=== PATIENT | female | born 1945 | race Caucasian/White ===

== ENCOUNTER → 2016-12-13 | Outpatient (CLI) | payer MEDICARE, OTHER ==
--- NOTE | 2016-12-13 15:56 | NM ---
EXAMINATION TYPE: NM DatScan Brain SPECT DATE OF EXAM: 12/13/2016 3:18 PM COMPARISON: NONE HISTORY: Parkinson's disease TECHNIQUE: 10 drops of Lugol's solution was administered 1 hour prior to injection as a thyroid bloc uzma agent. After the administration of 4.34 mCi I-123 Ioflupane DaTscan. Images obtained 3 hours p ost injection. SPECT images of the brain were acquired with axial and coronal reconstructions. FINDINGS: Normal symmetric comma shaped uptake noted along the striatal tissue within the brain. IMPRESSION: Normal Taryn scan
== END ==
LOC: RADNMMAIN 10:03
PROVIDERS: ATTEND Psychiatry & Neurology Neurology
DX: G20 Parkinson's disease (principal)
CPT/HCPCS: 78607; A9584

== ENCOUNTER → 2016-12-15 | Outpatient (CLI) | payer MEDICARE, OTHER ==
--- NOTE | 2016-12-16 16:11 | MR ---
EXAMINATION TYPE: MR angio head wo con DATE OF EXAM: 12/15/2016 2:28 PM COMPARISON: [facility] HISTORY: cerebral aneurysm, f/u TECHNIQUE: Time of flight images focusing on the [place] were performed without contrast. 3- D [id number] images are filmed. Source images are reviewed. FINDINGS: Right vertebral artery is not identified. Basilar artery is normal. The internal carotid ar teries bifurcates normally into A1 and M1 segments. The A2 segments are normal. The posterior cerebra l vasculature is normal. Posterior communicating on the right is patent. The left posterior communica ting artery is absent. Left middle cerebral artery branches are normal. At the trifurcation of the right distal M1 segment is a 0.4 cm aneurysm. This is evident on source im ages rotating images. COMPARISON: Previous measurement is 2.84 mm. Current measurement is 3.8 mm these may be within measur ement error. 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
== END | disposition home or self-care (01) ==
LOC: RADMRIMAIN 14:03
PROVIDERS: ATTEND Psychiatry & Neurology Neurology
DX: I67.1 Cerebral aneurysm, nonruptured (principal)
CPT/HCPCS: 70544

== ENCOUNTER 2017-05-27 09:56 | Emergency (ER) | payer MEDICARE, OTHER ==
[2017-05-27] MEDS ORDERED: ASPIRIN 81 MG CHEW PO STA (10:33)
[2017-05-27] MEDS ORDERED: SODIUM CHLORIDE 0.9% 500 ML IV STA (10:33)
--- NOTE | 2017-05-27 11:01 | ED ---
General Adult HPI - General Chief complaint: Chest Pain Stated complaint: Chest Pain Time Seen by Provider: 05/27/17 10:20 Source: patient, family, RN notes reviewed Mode of arrival: wheelchair Limitations: no limitations - History of Present Illness Initial comments: 71-year-old female presents to the emergency department with a chief complaint of chest pain. Patient states today she started having this chest pressure she points to the center of her chest. Patient states that she went to her doctor and she was sent here. Patient states that she has had a cough with this she states that there is some phlegm production. Patient states taking deep breath seems to make the pain worse as well as makes her cough. Patient denies any nausea vomiting with this. Patient does admit to some lower lip swelling that has happened for the past few days ever since her lisinopril dose was increased. Patient states there is no difficulty in breathing with this or any shortness of breath. Patient denies any nausea any diaphoresis. Patient denies any other symptoms at this time. There is no radiation of the pain. Patient denies any recent fever, chills, shortness of breath, back pain, abdominal pain, nausea vomiting, numbness or tingling, dysuria or hematuria, constipation or diarrhea, headaches or visual changes, or any other current symptoms. - Related Data Home Medications Medication Instructions Recorded Confirmed Atorvastatin [Lipitor] 10 mg PO DAILY 05/27/17 05/27/17 FLUoxetine HCL [PROzac] 20 mg PO DAILY 05/27/17 05/27/17 Hydrocodone/Acetaminophen [[place] 1 tab PO TID PRN 05/27/17 05/27/17 10-325] Levothyroxine Sodium [Synthroid] 125 mcg PO DAILY 05/27/17 05/27/17 Lisinopril-Hctz 10-12.5 mg 1 tab PO DAILY 05/27/17 05/27/17 [Zestoretic 10-12.5] Omeprazole [PriLOSEC] 20 mg PO DAILY 05/27/17 05/27/17 Allergies Allergy/AdvReac Type Severity Reaction Status Date / Time pravastatin [From Pravachol] Allergy Swelling Verified 05/27/17 10:51 Review of Systems ROS Statement: Those systems with pertinent positive or pertinent negative responses have been documented in the HPI. ROS Other: All systems not noted in ROS Statement are negative. Past Medical History Past Medical History: GERD/Reflux, Hyperlipidemia, Hypertension, Thyroid Disorder Additional Past Medical History / Comment(s): back pain History of Any Multi-Drug Resistant Organisms: None Reported Past Surgical History: Appendectomy, Hernia Repair Additional Past Surgical History / Comment(s): bilateral carpal tunnerl, trigger finger left hand, tumor removal Past Psychological History: Depression Smoking Status: Current every day smoker Past Alcohol Use History: Occasional Past Drug Use History: None Reported General Exam - General Exam Comments Initial Comments: General: The patient is awake and alert, in no distress, and does not appear acutely ill. Eye: Pupils are equal, round and reactive to light, extra-ocular movements are intact; there is normal conjunctiva bilaterally. No signs of icterus. Ears, nose, mouth and throat: There are moist mucous membranes and no oral lesions. Neck: The neck is supple, there is no tenderness. Cardiovascular: There is a regular rate and rhythm. No murmur, rub or gallop is appreciated. Respiratory: Lungs are clear to auscultation, respirations are non-labored, breath sounds are equal. No wheezes, stridor, rales, or rhonchi. Gastrointestinal: Soft, non-distended, non-tender abdomen without masses or organomegaly noted. There is no rebound or guarding present. No CVA tenderness. Bowel sounds are unremarkable. Back: There is no tenderness to palpation in the midline. There is no obvious deformity. No rashes noted. Musculoskeletal: Normal ROM, no tenderness, There is no pedal edema. There is no calf tenderness or swelling. Sensation intact. Pulses equal bilaterally 2+. Neurological: CN II-XII intact, There are no obvious motor or sensory deficits. Coordination appears grossly intact. Speech is normal. Skin: Skin is warm and dry and no rashes or lesions are noted. Psychiatric: Cooperative, appropriate mood & affect, normal judgment. Limitations: no limitations Course Vital Signs 05/27/17 05/27/17 05/27/17 09:57 10:28 11:15 Temperature 97.2 F L Pulse Rate 77 63 Respiratory 18 18 18 Rate Blood Pressure 167/68 143/64 O2 Sat by Pulse 98 99 Oximetry 05/27/17 12:16 Temperature Pulse Rate 60 Respiratory 18 Rate Blood Pressure 157/67 O2 Sat by Pulse 96 Oximetry EKG Findings - EKG Comments: EKG Findings:: normal sinus rhythm with sinus arrhythmia 66 bpm, normal axis, no atopy, no S-T depressions or elevations, Medical Decision Making - Medical Decision Making 71-year-old female presents to the emergency department with a chief complaint of chest pressure. At this time patient's pain is 1 out of 10 on reevaluation. Patient's lab work and imaging has been reviewed. Her chest pain with the risks factors will admit patient for cardiac rule out. This was discussed with the patient and she is negative plan. All questions have been answered. Patient will be admitted. - Lab Data Result diagrams: 05/27/17 10:24 05/27/17 10:24 Lab Results 05/27/17 05/27/17 05/27/17 Range/Units 10:24 10:24 10:24 WBC 6.3 (3.8-10.6) k/uL RBC 4.48 (3.80-5.40) m/uL Hgb 14.3 (11.4-16.0) gm/dL Hct 42.4 (34.0-46.0) % MCV 94.5 (80.0-100.0) fL MCH 31.8 (25.0-35.0) pg MCHC 33.7 (31.0-37.0) g/dL RDW 13.8 (11.5-15.5) % Plt Count 256 (150-450) k/uL Neutrophils % 63 % Lymphocytes % 25 % Monocytes % 5 % Eosinophils % 4 % Basophils % 1 % Neutrophils # 4.0 (1.3-7.7) k/uL Lymphocytes # 1.6 (1.0-4.8) k/uL Monocytes # 0.3 (0-1.0) k/uL Eosinophils # 0.2 (0-0.7) k/uL Basophils # 0.1 (0-0.2) k/uL PT (9.0-12.0) sec INR (<1.2) APTT (22.0-30.0) sec D-Dimer (<0.60) mg/L FEU Sodium 137 (137-145) mmol/L Potassium 4.2 (3.5-5.1) mmol/L Chloride 102 (98-107) mmol/L Carbon Dioxide 28 (22-30) mmol/L Anion Gap 7 mmol/L BUN 13 (7-17) mg/dL Creatinine 0.70 (0.52-1.04) mg/dL Est GFR (MDRD) Af Amer >60 (>60 ml/min/1.73 sqM) Est GFR (MDRD) Non-Af >60 (>60 ml/min/1.73 sqM) Glucose 98 (74-99) mg/dL Calcium 8.9 (8.4-10.2) mg/dL Magnesium 1.5 L (1.6-2.3) mg/dL Total Bilirubin 0.6 (0.2-1.3) mg/dL AST 17 (14-36) U/L ALT 24 (9-52) U/L Alkaline Phosphatase 78 (38-126) U/L Total Creatine Kinase 36 (30-135) U/L CK-MB (CK-2) 0.9 (0.0-2.4) ng/mL CK-MB (CK-2) Rel Index 2.5 Troponin I <0.012 (0.000-0.034) ng/mL NT-Pro-B Natriuret Pep pg/mL Total Protein 6.6 (6.3-8.2) g/dL Albumin 3.9 (3.5-5.0) g/dL Amylase 67 (30-110) U/L Lipase 63 (23-300) U/L 05/27/17 05/27/17 Range/Units 10:24 10:24 WBC (3.8-10.6) k/uL RBC (3.80-5.40) m/uL Hgb (11.4-16.0) gm/dL Hct (34.0-46.0) % MCV (80.0-100.0) fL MCH (25.0-35.0) pg MCHC (31.0-37.0) g/dL RDW (11.5-15.5) % Plt Count (150-450) k/uL Neutrophils % % Lymphocytes % % Monocytes % % Eosinophils % % Basophils % % Neutrophils # (1.3-7.7) k/uL Lymphocytes # (1.0-4.8) k/uL Monocytes # (0-1.0) k/uL Eosinophils # (0-0.7) k/uL Basophils # (0-0.2) k/uL PT 9.9 (9.0-12.0) sec INR 1.0 (<1.2) APTT 25.8 (22.0-30.0) sec D-Dimer 0.75 H (<0.60) mg/L FEU Sodium (137-145) mmol/L Potassium (3.5-5.1) mmol/L Chloride (98-107) mmol/L Carbon Dioxide (22-30) mmol/L Anion Gap mmol/L BUN (7-17) mg/dL Creatinine (0.52-1.04) mg/dL Est GFR (MDRD) Af Amer (>60 ml/min/1.73 sqM) Est GFR (MDRD) Non-Af (>60 ml/min/1.73 sqM) Glucose (74-99) mg/dL Calcium (8.4-10.2) mg/dL Magnesium (1.6-2.3) mg/dL Total Bilirubin (0.2-1.3) mg/dL AST (14-36) U/L ALT (9-52) U/L Alkaline Phosphatase (38-126) U/L Total Creatine Kinase (30-135) U/L CK-MB (CK-2) (0.0-2.4) ng/mL CK-MB (CK-2) Rel Index Troponin I (0.000-0.034) ng/mL NT-Pro-B Natriuret Pep 183 pg/mL Total Protein (6.3-8.2) g/dL Albumin (3.5-5.0) g/dL Amylase (30-110) U/L Lipase (23-300) U/L - Radiology Data Radiology results: report reviewed, image reviewed Disposition Clinical Impression: Unstable angina, Cough Disposition: ADMITTED IP TO THIS [facility] Condition: Stable Referrals: Alisha Munoz MD [Primary Care Provider] - 1-2 days Time of Disposition: 13:12 Decision Date: 05/27/17 Decision Time: 13:12
[2017-05-27 11:17] LABS: Basophils # (A) 0.1 k/uL (0-0.2); Basophils % (A) 1 %; CH 32.7; CHCM 34.8; Eosinophils # (A) 0.2 k/uL (0-0.7); Eosinophils % (A) 4 %; HCT 42.4 % (34.0-46.0); HDW 2.21; HGB 14.3 gm/dL (11.4-16.0); Luc # (Auto) 0.12; Luc % (Auto) 2; Lymphocytes # (A) 1.6 k/uL (1.0-4.8); Lymphocytes % (A) 25 %; MCH 31.8 pg (25.0-35.0); MCHC 33.7 g/dL (31.0-37.0); MCV 94.5 fL (80.0-100.0); Mean Platelet Volume 7.7; Monocytes # (A) 0.3 k/uL (0-1.0); Monocytes % (A) 5 %; Neutrophils % (A) 63 %; RBC 4.48 m/uL (3.80-5.40); RDW 13.8 % (11.5-15.5); WBC 6.3 k/uL (3.8-10.6); WBC (Perox) 6.31
[2017-05-27 11:31] LABS: ALT 24 U/L (9-52); AST 17 U/L (14-36); Alkaline Phosphatase 78 U/L (38-126); Amylase 67 U/L (30-110); Anion Gap 7 mmol/L; Blood Urea Nitrogen 13 mg/dL (7-17); Calcium 8.9 mg/dL (8.4-10.2); Carbon Dioxide 28 mmol/L (22-30); Chloride 102 mmol/L (98-107); Glucose 98 mg/dL (74-99); Magnesium 1.5 mg/dL (1.6-2.3); Non-African American GFR(MDRD) >60 (>60 ml/min/1.73 sqM); Potassium 4.2 mmol/L (3.5-5.1); Sodium 137 mmol/L (137-145); Total Bilirubin 0.6 mg/dL (0.2-1.3); Total Protein 6.6 g/dL (6.3-8.2)
[2017-05-27 11:33] LABS: Partial Thromboplastin Time 25.8 sec (22.0-30.0); Prothrombin Time 9.9 sec (9.0-12.0)
--- NOTE | 2017-05-27 11:35 | XR ---
EXAMINATION TYPE: XR chest 2V DATE OF EXAM: 05/27/2017 COMPARISON: NONE HISTORY: Chest pain, hypertension TECHNIQUE: Frontal and lateral views of the chest are obtained. FINDINGS: There is no focal air space opacity, pleural effusion, or pneumothorax seen. The cardiac silhouette size is within normal limits. Interstitium is prominent, there is biapical pleural thicke samuel. Prominent lung volume could be indicative of underlying COPD. There are overlying cardiac leads . Patient is rotated. The osseous structures are intact. IMPRESSION: Suspect underlying interstitial lung disease.
[2017-05-27 11:37] LABS: Creatine Kinase 36 U/L (30-135)
[2017-05-27] MEDS ORDERED: RX INFO: IV CONTRAST WAS GIVEN 1 EACH MISC MISCELLANE PRN (11:43)
[2017-05-27 11:50] LABS: Creatine Kinase MB 0.9 ng/mL (0.0-2.4); Troponin I <0.012 ng/mL (0.000-0.034)
--- NOTE | 2017-05-27 12:47 | CT ---
EXAMINATION TYPE: CT angio chest DATE OF EXAM: 05/27/2017 COMPARISON: NONE HISTORY: Chest pain, difficulty breathing CT DLP: 242.7 mGycm. Automated Exposure Control for Dose Reduction was Utilized. CONTRAST: CTA scan of the thorax is performed with IV Contrast, patient injected with 100 mL of Omnipaque 350, pulmonary embolism protocol. MIP Images are created on CT scanner and reviewed. FINDINGS: LUNGS: Biapical nodular pleural parenchymal scarring is noted. Moderate centrilobular and paraseptal emphysematous changes are seen with scattered blebs. Stacking of lung cysts compatible with honeycomb ing is seen a peripheral basilar distribution predominating in the lower lobes compatible with pulmon addy fibrosis. Within the posterior basilar segment of the left lower lobe there is a spiculated 9 x 9 mm pulmonary nodule abutting the pleural surface. Focal pleural thickening is seen just inferior and lateral to th is as well as scattered groundglass opacities that may relate to the underlying fibrosis or bibasilar atelectasis. No focal consolidation is seen. No pleural effusion or pneumothorax. There is no pleura l effusion or pneumothorax seen. The tracheobronchial tree is patent. MEDIASTINUM: Moderate two-vessel coronary artery calcifications are seen within the left anterior anju cending and circumflex arteries. There is satisfactory enhancement of the pulmonary artery and its br anches, there is no CT evidence for pulmonary embolism. Mediastinal and hilar adenopathy are present with the largest conglomeration in the right hilum measuring 2.4 x 1.3 cm, the largest subcarinal lym ph node measuring 8.8 mm in short axis, and a noted within the aorticopulmonary window measuring 11 m m in short axis. No axillary adenopathy is appreciated. No cardiomegaly or pericardial effusion is seen. OTHER: No additional significant abnormality is seen. Mild degenerative changes of the thoracic spin e are noted. IMPRESSION: 1. No evidence of pulmonary embolism. 2. 9 mm spiculated nodule within the posterior basilar segment of the left lower lobe. This is superi mposed upon a background of moderate centrilobular and paraseptal emphysematous changes as well as fi ndings compatible with pulmonary fibrosis. Therefore, this patient may be high risk if undergoing per cutaneous biopsy and PET CT or short-term follow-up in 3 months is recommended.
[2017-05-27] MEDS ORDERED: HEPARIN SODIUM,PORCINE 5,000 UNIT/ML 1 ML VIAL IV ONE (13:12)
[2017-05-27] MEDS ORDERED: NITROGLYCERIN SL TABS 0.4 MG TAB SUBLINGUAL PRN (13:12)
[2017-05-27] MEDS ORDERED: HYDROcodone/APAP 10-325MG 1 EACH TAB PO PRN (13:14)
[2017-05-27] MEDS ORDERED: SODIUM CHLORIDE 0.9% 1,000 ML IV SCH (13:15)
[2017-05-27] MEDS ORDERED: HEPARIN SODIUM,PORCINE/D5W PMX 25,000 UNIT in DEXTROSE/WATER 1 500ML.BAG IV SCH (13:15)
--- NOTE | 2017-05-27 13:18 | ED ---
Medical Decision Making - Medical Decision Making After the orders for any place for admission the patient states that she would like to leave AMA. She was discussed the risk of this. We did discuss that could lead to she could've a heart attack along with many other causes. Patient stated she understood but she will be signing out. - Lab Data Result diagrams: 05/27/17 10:24 05/27/17 10:24 Lab Results 05/27/17 05/27/17 05/27/17 Range/Units 10:24 10:24 10:24 WBC 6.3 (3.8-10.6) k/uL RBC 4.48 (3.80-5.40) m/uL Hgb 14.3 (11.4-16.0) gm/dL Hct 42.4 (34.0-46.0) % MCV 94.5 (80.0-100.0) fL MCH 31.8 (25.0-35.0) pg MCHC 33.7 (31.0-37.0) g/dL RDW 13.8 (11.5-15.5) % Plt Count 256 (150-450) k/uL Neutrophils % 63 % Lymphocytes % 25 % Monocytes % 5 % Eosinophils % 4 % Basophils % 1 % Neutrophils # 4.0 (1.3-7.7) k/uL Lymphocytes # 1.6 (1.0-4.8) k/uL Monocytes # 0.3 (0-1.0) k/uL Eosinophils # 0.2 (0-0.7) k/uL Basophils # 0.1 (0-0.2) k/uL PT (9.0-12.0) sec INR (<1.2) APTT (22.0-30.0) sec D-Dimer (<0.60) mg/L FEU Sodium 137 (137-145) mmol/L Potassium 4.2 (3.5-5.1) mmol/L Chloride 102 (98-107) mmol/L Carbon Dioxide 28 (22-30) mmol/L Anion Gap 7 mmol/L BUN 13 (7-17) mg/dL Creatinine 0.70 (0.52-1.04) mg/dL Est GFR (MDRD) Af Amer >60 (>60 ml/min/1.73 sqM) Est GFR (MDRD) Non-Af >60 (>60 ml/min/1.73 sqM) Glucose 98 (74-99) mg/dL Calcium 8.9 (8.4-10.2) mg/dL Magnesium 1.5 L (1.6-2.3) mg/dL Total Bilirubin 0.6 (0.2-1.3) mg/dL AST 17 (14-36) U/L ALT 24 (9-52) U/L Alkaline Phosphatase 78 (38-126) U/L Total Creatine Kinase 36 (30-135) U/L CK-MB (CK-2) 0.9 (0.0-2.4) ng/mL CK-MB (CK-2) Rel Index 2.5 Troponin I <0.012 (0.000-0.034) ng/mL NT-Pro-B Natriuret Pep pg/mL Total Protein 6.6 (6.3-8.2) g/dL Albumin 3.9 (3.5-5.0) g/dL Amylase 67 (30-110) U/L Lipase 63 (23-300) U/L 05/27/17 05/27/17 Range/Units 10:24 10:24 WBC (3.8-10.6) k/uL RBC (3.80-5.40) m/uL Hgb (11.4-16.0) gm/dL Hct (34.0-46.0) % MCV (80.0-100.0) fL MCH (25.0-35.0) pg MCHC (31.0-37.0) g/dL RDW (11.5-15.5) % Plt Count (150-450) k/uL Neutrophils % % Lymphocytes % % Monocytes % % Eosinophils % % Basophils % % Neutrophils # (1.3-7.7) k/uL Lymphocytes # (1.0-4.8) k/uL Monocytes # (0-1.0) k/uL Eosinophils # (0-0.7) k/uL Basophils # (0-0.2) k/uL PT 9.9 (9.0-12.0) sec INR 1.0 (<1.2) APTT 25.8 (22.0-30.0) sec D-Dimer 0.75 H (<0.60) mg/L FEU Sodium (137-145) mmol/L Potassium (3.5-5.1) mmol/L Chloride (98-107) mmol/L Carbon Dioxide (22-30) mmol/L Anion Gap mmol/L BUN (7-17) mg/dL Creatinine (0.52-1.04) mg/dL Est GFR (MDRD) Af Amer (>60 ml/min/1.73 sqM) Est GFR (MDRD) Non-Af (>60 ml/min/1.73 sqM) Glucose (74-99) mg/dL Calcium (8.4-10.2) mg/dL Magnesium (1.6-2.3) mg/dL Total Bilirubin (0.2-1.3) mg/dL AST (14-36) U/L ALT (9-52) U/L Alkaline Phosphatase (38-126) U/L Total Creatine Kinase (30-135) U/L CK-MB (CK-2) (0.0-2.4) ng/mL CK-MB (CK-2) Rel Index Troponin I (0.000-0.034) ng/mL NT-Pro-B Natriuret Pep 183 pg/mL Total Protein (6.3-8.2) g/dL Albumin (3.5-5.0) g/dL Amylase (30-110) U/L Lipase (23-300) U/L Disposition Clinical Impression: Unstable angina, Cough, Lesion of lung Disposition: ADMITTED IP TO THIS [facility] Condition: Stable Referrals: Alisha Munoz MD [Primary Care Provider] - 1-2 days
[2017-05-27 13:29] VITALS: BP 179/73; PULSE 66; RESP 16; TEMP 98
[2017-05-28] MEDS ORDERED: LISINOPRIL-HCTZ 10-12.5 MG 1 EACH TAB PO SCH (09:00)
[2017-05-28] MEDS ORDERED: ATORVASTATIN 10 MG TAB PO SCH (09:00)
[2017-05-28] MEDS ORDERED: ASPIRIN 325 MG TAB PO SCH (09:00)
[2017-05-28] MEDS ORDERED: FLUoxetine HCL 20 MG CAP PO SCH (09:00)
[2017-05-28] MEDS ORDERED: LEVOTHYROXINE 125 MCG TAB PO SCH (09:00)
[2017-05-28] MEDS ORDERED: NON-FORMULARY DRUG (Omeprazole 20 MG) PO SCH (09:00)
== END 2017-05-27 13:30 | disposition left against medical advice (07) ==
LOC: EC 09:56
DX: I20.0 Unstable angina (principal); R05 Cough; E78.5 Hyperlipidemia, unspecified; I10 Essential (primary) hypertension; E07.9 Disorder of thyroid, unspecified; K21.9 Gastro-esophageal reflux disease without esophagitis; F32.9 Major depressive disorder, single episode, unspecified; F17.200 Nicotine dependence, unspecified, uncomplicated; Z79.899 Other long term (current) drug therapy; Z88.8 Allergy status to other drugs, medicaments and biological substances
CPT/HCPCS: 99285; 36415; 93005; 85379; 83880; 80053; 82150; 82550; 82553; 83690; 83735; 84484; 85025; 85610; 85730; 71020; 71275; Q9967

== ENCOUNTER → 2017-12-16 | Outpatient (CLI) | payer MEDICARE, OTHER ==
[2017-12-13 15:02] VITALS: BMI 25.7
[2017-12-16 13:03] VITALS: BP 176/71; PULSE 65; RESP 16
--- NOTE | 2017-12-16 13:30 | P.HPIM ---
History of Present Illness H&P Date: 12/16/17 Chief Complaint: headaches This is a 72-year-old patient referred by Dr. Munoz for chronic headache pain; patient has already had occipital NB by Dr. Weir with no relief. Patient has a cerebral aneurysm and is referred for possible repeat occipital nerve blocks. Patient has been taking medications from primary care physician including [place] medications with some relief. Patient denies adverse drug effects from medications. Patient also denies new-onset weakness, bowel/ bladder incontinence, or any other signs or symptoms of cauda equina syndrome. There are no signs of acute intoxication, and no indications of medication diversion or overuse. Patient notes that pain worsens significantly with lifting the head and driving , and improves with rest and medication. Patient has used several types of medications for pain, including NSAIDS, OPIOIDS. Patient HAS NOT had surgery. Patient HAS NOT had injections previously. Patient HAS/HAS NOT had physical therapy recently. In addition to above, 13-point review of systems is also negative for chest pain , shortness of breath, changes in vision, changes in hearing, new onset weakness , abdominal pain, diarrhea, extreme fatigue, malaise, fever, skin changes, homicidal or suicidal ideation, or bowel or bladder incontinence. Vital Signs: Reviewed in EMR Gen: WDWN, AAOx3, NAD HEENT: NCAT, EOMI, hearing grossly normal, + tenderness over occipital ridge right side Pulm: resp unlabored Abd: soft, NT, ND Neck: supple, trachea midline ROM in flexion cervical spine: full ROM in extension cervical spine: reduced due to pain Cervical paravertebral tenderness: + R > L Cervical Facet tenderness: ++ R > ++ L Spurling's: neg Neuro: CN II-XII grossly intact Past Medical History Past Medical History: GERD/Reflux, Hyperlipidemia, Hypertension, Thyroid Disorder Additional Past Medical History / Comment(s): back pain. ANEURYSM RT SIDE OF HEAD. SMALL TUMOR NOTED ON C-SCAN AT BASE OF NECK History of Any Multi-Drug Resistant Organisms: None Reported Past Surgical History: Appendectomy, Hernia Repair, Orthopedic Surgery Additional Past Surgical History / Comment(s): bilateral carpal tunnerl, trigger finger left hand, tumor removal LT SIDE, RT ROTATOR CUFF REPAIR, RT TENNIS ELBOW REPAIR, COLONOSCOPY, Past Anesthesia/Blood Transfusion Reactions: No Reported Reaction Smoking Status: Current every day smoker - Past Family History Mother Family Medical History: No Reported History Medications and Allergies Home Medications Medication Instructions Recorded Confirmed Type Atorvastatin [Lipitor] 10 mg PO DAILY 05/27/17 12/16/17 History FLUoxetine HCL [PROzac] 20 mg PO DAILY 05/27/17 12/16/17 History Hydrocodone/Acetaminophen [[place] 1 tab PO TID PRN 05/27/17 12/16/17 History 10-325] Levothyroxine Sodium [Synthroid] 125 mcg PO DAILY 05/27/17 12/16/17 History Omeprazole [PriLOSEC] 20 mg PO DAILY 05/27/17 12/16/17 History amLODIPine BESYLATE [Norvasc] 5 mg PO DAILY 12/13/17 12/16/17 History Ibuprofen [Motrin] 800 mg PO Q4-6H PRN 12/16/17 12/16/17 History Allergies Allergy/AdvReac Type Severity Reaction Status Date / Time hydrochlorothiazide Allergy SWELLING Verified 12/13/17 14:55 [From Zestoretic] FACE AND LIPS lisinopril [From Zestoretic] Allergy SWELLING Verified 12/13/17 14:55 FACE AND LIPS Penicillins Allergy Rash/Hives Verified 12/13/17 14:54 pravastatin [From Pravachol] Allergy Swelling Verified 12/13/17 14:54 Results Comments: CT cervical spine without contrast demonstrates moderate spurring into space narrowing at the C5-C6 and C6 7 levels. There is also a tiny ill-defined subcu tissue density in the subacute cutaneous fat at this level of the right craniocervical junction measuring roughly 1 cm in size along. Etiology is uncertain but benign is strongly favored. Assessment and Plan (1) Neck mass Current Visit: Yes Status: Chronic Code(s): R22.1 - LOCALIZED SWELLING, MASS AND LUMP, NECK SNOMED Code(s): 492187716 (2) Cervical spondylosis Current Visit: Yes Status: Chronic Code(s): M47.812 - SPONDYLOSIS W/O MYELOPATHY OR RADICULOPATHY, CERVICAL REGION SNOMED Code(s): 137394764 (3) Chronic pain syndrome Current Visit: Yes Status: Chronic Code(s): G89.4 - CHRONIC PAIN SYNDROME SNOMED Code(s): 984672772 (4) Degenerative disc disease, cervical Current Visit: Yes Status: Chronic Code(s): M50.30 - OTHER CERVICAL DISC DEGENERATION, UNSP CERVICAL REGION SNOMED Code(s): 35399967 Plan: 1. Explanation: Opioid and psychological risk scores were reviewed. Diagnoses , prognoses, and multiple treatment options including but not limited to physical therapy, interventional therapies, adjuvant medical therapies, narcotic medication therapies, and surgery were discussed with the patient and all questions were answered to the patient's satisfaction. 2. Opioid agreement: no opioids prescribed today 3. Counseling: The patient was counseled extensively on SMOKING CESSATION, BODY MASS INDEX, EXERCISE. Specifically, the patient was instructed regarding the importance of smoking cessation, weight control, and exercise in the context of both chronic pain and overall health. 4. Procedures: none for now, consider cervical MBB right side in future 5. Consultations: general surgery to eval neck mass 6. Investigations: MRI C-spine to eval mass in subcutaneous fat 7. Medications: none prescribed 8. Disposition: f/u for re-eval in 6 weeks PQRS measures: 1-Patient's medications are documented in the chart. 2-Tobacco use is negative, counseling given 3-Patient has not had a pneumococcal vaccine. 4-Advanced care planning discussed, patient unable to give. 5-Opioid contract signed with the patient. 6-Pain positive, follow-up visit or procedure scheduled 7-Patient's blood pressure measured and documented, and patient will follow up with the primary care due to hypertension. 8-Patient's weight was measured, and body mass index ABOVE the normal limits, and counseling was done. Patient instructed to follow up with PCP. 9-Patient WAS identified as an unhealthy alcohol user. Time with Patient: Greater than 30
== END ==
LOC: PNWHC3 12:04
PROVIDERS: ATTEND Anesthesiology
DX: G89.4 Chronic pain syndrome (principal); M50.30 Other cervical disc degeneration, unspecified cervical region; M47.812 Spondylosis without myelopathy or radiculopathy, cervical region; R22.1 Localized swelling, mass and lump, neck; E07.9 Disorder of thyroid, unspecified; K21.9 Gastro-esophageal reflux disease without esophagitis; F17.209 Nicotine dependence, unspecified, with unspecified nicotine-induced disorders; Z79.891 Long term (current) use of opiate analgesic; Z79.1 Long term (current) use of non-steroidal anti-inflammatories (NSAID); Z88.8 Allergy status to other drugs, medicaments and biological substances; Z88.0 Allergy status to penicillin; Z79.899 Other long term (current) drug therapy
CPT/HCPCS: 99211

== ENCOUNTER → 2018-10-25 | Outpatient (CLI) | payer MEDICARE ==
--- NOTE | 2018-10-28 17:24 | PE ---
Nuclear medicine PET/CT HISTORY: Lung carcinoma, subsequent Patient received 9.5 mCi F-18 FDG intravenously and delayed scanning was performed from the skull bas e to the mid thighs. An attenuation correction CT, localization CT scan was also performed. Correlation to CT chest dated 05/27/2017 Neck and chest: There is no evident adenopathy within the supraclavicular or cervical regions. Skull base is unremarkable. Within the left lower lobe, perihilar location there is abnormal soft tissue th at has developed in the interval with poorly defined margins, there is associated hypermetabolic upta ke present, SUV 12.8. There is interval development of pleural thickening at the left lung base, some probable scarring and possible small effusion. The previously identified left lower lobe lung nodule is no longer seen, no associated hypermetabolic uptake in this distribution. The underlying honeycom kaelyn, interstitial lung disease is again seen. There is extensive emphysema. Coronary calcifications are noted, heart is borderline enlarged. Subcentimeter mediastinal nodes are present. Abdomen pelvis: No adrenal mass. Patient is post cholecystectomy. No evident liver mass. No suspiciou s hypermetabolic uptake. Bowel activity felt likely to be physiologic. Uterus and adnexal structures are not seen. Postop changes are noted with surgical clips in the soft tissues of the abdominal wall in the left lower quadrant. Osseous structures show degenerative disc change in the visualized spine. IMPRESSION: Probable interval treatment changes. Suspicious left hilar, perihilar hypermetabolic upta ke.
== END | disposition home or self-care (01) ==
LOC: RADPETMAIN 12:02
PROVIDERS: ATTEND Internal Medicine Hematology & Oncology
DX: C34.32 Malignant neoplasm of lower lobe, left bronchus or lung (principal)
CPT/HCPCS: 78815; A9552

== ENCOUNTER → 2018-10-28 | Outpatient (CLI) | payer MEDICARE, OTHER ==
--- NOTE | 2018-10-28 16:43 | MR ---
EXAMINATION TYPE: MR brain wo/w con DATE OF EXAM: 10/28/2018 COMPARISON: 12/15/16 HISTORY: Lung Cancer / Headaches TECHNIQUE: Multiplanar, multisequence images of the brain and brainstem is performed without and with IV contras t, utilizing 7.5 mL intravenous Gadavist . FINDINGS: Diffusion weighted images demonstrate no evidence of a recent infarct or other diffusion ab normality. There is no extra-axial fluid collection. There is moderate burden nonspecific white shayna er change with patchy areas of T2/FLAIR hyperintensity throughout the periventricular and subcortical white matter. These do not demonstrate enhancement and are most commonly related to sequela of micro angiopathy. The ventricular system and cisternal spaces are symmetrically prominent compatible with a ge-related volume loss. Midline structures demonstrate normal morphology. The craniocervical junction appears within normal limits. Post contrast images demonstrate no abnormal enhancement. The visualized paranasal sinuses d emonstrate mild mucosal thickening within the ethmoid and maxillary sinuses. Remainder of the visuali zed paranasal sinuses are well aerated. Intracranial flow voids are maintained, however there is T2 hypointensity measuring 4 mm within a bra nch vessel of the right middle cerebral artery on T2 axial fat sat image 12 relating to an aneurysm s een on the prior MR angiogram head dated 12/15/2016. IMPRESSION: 1. No abnormal intracranial enhancement to suggest metastasis. 2. Moderate burden nonspecific white matter change, most commonly related to sequela of microangiopat hy. 3. Redemonstration of the right middle cerebral artery aneurysm better seen on the MRA head of 2017. Continued follow-up with MRA is recommended for interval growth assessment. 4. Mild age-related cerebral volume loss.
== END ==
LOC: RADMRIMAIN 14:09
PROVIDERS: ATTEND Internal Medicine Hematology & Oncology
DX: R90.89 Other abnormal findings on diagnostic imaging of central nervous system (principal); I67.1 Cerebral aneurysm, nonruptured
CPT/HCPCS: 70553; A9585

== ENCOUNTER → 2019-01-17 | Outpatient (CLI) | payer MEDICARE ==
--- NOTE | 2019-01-18 16:43 | PE ---
EXAMINATION TYPE: PET CT fusion skull to thigh DATE OF EXAM: 01/17/2019 COMPARISON: CTA 2016 Prior PET/CT: 10/25/2018 HISTORY: Follow-up lung cancer TECHNIQUE: Following the intravenous administration of 14.83 mCi of F-18 FDG, whole body images are performed from the skull base to the midthigh. Images are reviewed on the computer in the coronal, a xial, and sagittal planes. Reconstructed rotating images are created on independent workstation and reviewed on the computer. A localization and attenuation correction CT is performed in conjunction with the PET scan. DLP: 291.72 mGycm SCAN: Subsequent Blood glucose: 105 mg/dL Average Mediastinum SUV: 1.3 Average Liver SUV: 1.85 FINDINGS: NECK: No abnormal uptake THORAX: There is a focus of uptake within the posterior left infrahilar region with an SUV value of 4 .6 this is diminished from the previous study which had an SUV value of 12. No new areas of radiotrac er accumulation are apparent ABDOMEN: No abnormal uptake PELVIS: No abnormal uptake OSSEOUS STRUCTURES: No abnormal uptake LOCALIZATION CT: Postsurgical changes are in the posterior medial left lung. Vascular calcifications within the aorta. Ascending thoracic aorta at the level the main pulmonary artery is 3.7 cm. The main pulmonary artery the bifurcation is 2.4 cm. COMPARISON: The left infrahilar area of uptake has diminished in size over the interval. SUV values d iminished over the interval. IMPRESSION: 1. Diminished size and uptake within the left infrahilar abnormality PSV values diminishing from comp arison.
== END | disposition home or self-care (01) ==
LOC: RADPETMAIN 09:56
PROVIDERS: ATTEND Internal Medicine Hematology & Oncology
DX: C34.32 Malignant neoplasm of lower lobe, left bronchus or lung (principal)
CPT/HCPCS: 78815; A9552

== ENCOUNTER → 2019-03-06 | Outpatient (CLI) | payer MEDICARE, OTHER ==
--- NOTE | 2019-03-06 11:13 | XR ---
EXAMINATION TYPE: XR wrist complete RT DATE OF EXAM: 03/06/2019 COMPARISON: NONE HISTORY: Pain TECHNIQUE: Four views submitted. FINDINGS: The osseous structures are intact. The joint spaces are preserved and there is no acute fracture or dislocation. Changes of chondrocalcinosis. IMPRESSION: 1. No definite acute fracture or dislocation if symptoms persist, follow-up study in 7 to 10 days wo uld be suggested. Correlate for arthritic change.
== END ==
LOC: RADXRMAIN 10:36
PROVIDERS: ATTEND Internal Medicine Hematology & Oncology
DX: M25.539 Pain in unspecified wrist (principal); C34.32 Malignant neoplasm of lower lobe, left bronchus or lung; D05.90 Unspecified type of carcinoma in situ of unspecified breast; E03.9 Hypothyroidism, unspecified; I10 Essential (primary) hypertension

== ENCOUNTER → 2019-05-18 | Outpatient (CLI) | payer MEDICARE, OTHER ==
[2019-05-18 15:59] LABS: African American GFR (CKD) >90 (>60 ml/min/1.73 sqM); Blood Urea Nitrogen 12 mg/dL (7-17)
--- NOTE | 2019-05-18 16:32 | CT ---
EXAMINATION TYPE: CT chest wo/w con DATE OF EXAM: 05/18/2019 COMPARISON: CTA chest January 25, 2017. Most recent PET/CT January 17, 2019 and older study October 25 19 HISTORY: LUNG CA left lower lobe CT DLP: 283.4 mGycm. Automated Exposure Control for Dose Reduction was Utilized. TECHNIQUE: CT scan of the thorax is performed without and with IV Contrast, patient injected with 1 00 mL of Isovue 300. FINDINGS: LUNGS: Advanced underlying emphysematous changes redemonstrated with fairly moderate parenchymal fibr osis most prominent in the left lung. Mild to moderate biapical pleural/parenchymal scarring is again seen. Since most recent PET CT there is worsening left hilar mass encasing the lingular and left low er lung pulmonary artery measuring 2.6 x 2.5 cm axial image 30. There is persistent tiny left-sided p leural fluid collection extending inferiorly and medially to this near surgical sutures. No new right -sided nodules. MEDIASTINUM: There are no stable prominent prevascular lymph nodes axial image 22 and AP window lymph nodes axial image 23. Cannot exclude new right anterior hilar lesion or lymph node 1.3 cm axial imag e 28. Stable subcarinal fullness axial image 31. Tiny pericardial effusion is seen on current study. Stable mild cardiomegaly. OTHER: No additional significant abnormality is seen. IMPRESSION: Suspect local progression from most recent PET/CT. Cannot exclude new right hilar adenopa thy. Advise repeat PET/CT to better evaluate. Uncertain if patient is currently actively going to [facility] as no history is provided by cath lab technologist.
== END | disposition home or self-care (01) ==
LOC: RADCTMAIN 15:23
PROVIDERS: ATTEND Radiology Radiation Oncology
DX: C34.32 Malignant neoplasm of lower lobe, left bronchus or lung (principal); Z86.000 Personal history of in-situ neoplasm of breast; Z79.811 Long term (current) use of aromatase inhibitors; Z92.21 Personal history of antineoplastic chemotherapy
CPT/HCPCS: 82565; 84520; 71270; 36415; Q9967

== ENCOUNTER → 2019-06-12 | Outpatient (CLI) | payer MEDICARE, OTHER ==
--- NOTE | 2019-06-15 08:01 | PE ---
EXAMINATION TYPE: PET CT fusion skull to thigh DATE OF EXAM: 06/12/2019 COMPARISON: PET/CT dated 01/17/2019 and 10/25/2018 HISTORY: Known lung cancer treated with prior surgery, radiation on 01/10/2019 and chemotherapy in 12/13. TECHNIQUE: Following the intravenous administration of 12.366 mCi of F-18 FDG, whole body images are performed from the skull base to the midthigh. Images are reviewed on the computer in the coronal, axial, and sagittal planes. Reconstructed rotating images are created on independent workstation and reviewed on the computer. A localization and attenuation correction CT is performed in conjunction with the PET scan. SCAN: Subsequent treatment strategy FINDINGS: Mediastinal background: 1.6 Abdominal background: 2.55 SKULL BASE AND NECK: No suspicious hypermetabolic activity CHEST, MEDIASTINUM, AND HILAR REGION: The previously seen left infrahilar adenopathy had a maximum BRIGGS V of 4.6 on the prior exam of 01/17/2019, diminished from the more remote exam of 10/25/2018 where this had an SUV of 12.0. Current SUV of 6.07. This adenopathy is difficult to measure but appears to repre sent a conglomeration of lymph nodes. New hypermetabolic right mediastinal lymph node in the perihilar region measures in short axis and eid s a maximum SUV of 2.9. Measures approximately 8 mm in short axis on series 3 image 91. New enlarged aorticopulmonary window lymph node has a maximum SUV of 5.9. This is not clearly defined but appears to measure approximately 1.1 cm on series 3 image 85. Pretracheal lymph node in the superior mediasti num has a maximum SUV of 2.8. This is seen on series 3 image 73 measuring 6 mm in short axis. No susp icious suprahilar lymph nodes. New pulmonary nodule seen just lateral to the surgical sutures in the medial left lower lobe has a ma ximum SUV of 5.67 (7 mm in size and series 3 image 107) with smaller adjacent nodule having a maximum SUV of 4.25 just inferior to this (6 mm in short axis on series 3 image 1:15 with adjacent 5 mm pulm onary nodule that is below the threshold of PET CT on the same image). There is background moderate to advanced centrilobular and paraseptal emphysematous change. Bibasilar subsegmental atelectasis is noted. Radiation pneumonitis is presumed around the left hilum and left lower lobe including the infrahilar region. ABDOMEN AND PELVIS: No suspicious hypermetabolic activity OSSEOUS STRUCTURES: No suspicious hypermetabolic activity OTHER CT: Paranasal sinuses appear well aerated as are the mastoid air cells. Orbits are symmetric an d unremarkable. Extensive atherosclerosis of the carotid arteries, aorta, and aortic branch vessels. Sigmoid diverticula are scattered. Pelvic floor relaxation is noted. Renal arterial calcifications ar e seen. Gallbladder surgically absent. Gastric fundal and body thickening could relate to incomplete distention. Trace pericardial effusion. Moderate coronary artery calcifications. Moderate degenerativ e changes of the spine and femoral acetabular joints. IMPRESSION: Progression of disease. New pulmonary nodules of the medial left lower lobe directly silvia cent to surgical sutures from the prior partial lobectomy representing recurrence (3 subcentimeter no dules). Additionally there are new hypermetabolic mediastinal lymph nodes in the pretracheal space, a orticopulmonary window, and right hilum in addition to the known hypermetabolic left perihilar adenop athy.
== END | disposition home or self-care (01) ==
LOC: RADPETMAIN 13:56
PROVIDERS: ATTEND Internal Medicine Hematology & Oncology
DX: C34.32 Malignant neoplasm of lower lobe, left bronchus or lung (principal)
CPT/HCPCS: 78815; A9552

== ENCOUNTER → 2019-07-01 | Outpatient (CLI) | payer MEDICARE, OTHER ==
--- NOTE | 2019-07-01 12:50 | XR ---
EXAMINATION TYPE: XR chest 2V DATE OF EXAM: 07/01/2019 COMPARISON: Chest x-ray May 27, 2017. Chest CT May 18, 2019. PET/CT June 12, 2019. HISTORY: Lung cancer. TECHNIQUE: Frontal and lateral views of the chest are obtained. FINDINGS: There is chronic emphysematous and parenchymal changes bilaterally with persistent left hi lar fullness correlates with PET positive malignancy. No new focal airspace opacity, pleural effusio n, or pneumothorax. The cardiac silhouette size remains within normal limits. The osseous structure s are intact. IMPRESSION: Chronic emphysematous lung parenchymal changes with left hilar mass/neoplasm. No acute p ulmonary process is evident.
== END | disposition home or self-care (01) ==
LOC: RADXRMAIN 11:10
PROVIDERS: ATTEND Internal Medicine Hematology & Oncology
DX: J43.9 Emphysema, unspecified (principal); D05.90 Unspecified type of carcinoma in situ of unspecified breast; E03.9 Hypothyroidism, unspecified; I10 Essential (primary) hypertension
CPT/HCPCS: 71046

== ENCOUNTER 2019-07-21 12:32 | Day surgery (SDC) | payer MEDICARE, OTHER ==
[2019-07-17 10:20] VITALS: BMI 21.1
[~2019-07-21 12:32] MED LIST: LACTATED RINGERS 1,000 ML IV SCH
[2019-07-21] MEDS ORDERED: LIDOCAINE 1% 20 ML VIAL (10MG/ML) FOR IV START INTRADERMA ONE (13:09)
[2019-07-21 13:19] VITALS: TEMP 97
[2019-07-21] MEDS ORDERED: PROPOFOL 10 MG/ML 20 ML VIAL IV ONE (14:01)
[2019-07-21] MEDS ORDERED: LIDOCAINE 1% INJ 10MG/ML (20 ML MDV) ONE (14:01)
--- NOTE | 2019-07-21 14:27 | P.PCN ---
Date of Procedure: 07/21/19 Description of Procedure: BRIEF HISTORY: Patient is a 73-year-old, pleasant, female who presents for outpatient EGD for evaluation of symptoms of dysphagia. Patient reports esophageal dysphagia both solids and liquids which has been present since she had radiation therapy for treatment of lung cancer in December. She feels that some progressive. She is currently on treatment with omeprazole twice daily but reports continued symptoms. PROCEDURE PERFORMED: Esophagogastroduodenoscopy with biopsy. PREOPERATIVE DIAGNOSIS: Esophageal dysphagia. ESTIMATED BLOOD LOSS: Minimal. IV sedation per anesthesia. PROCEDURE: After informed consent was obtained, the patient was brought into the endoscopy unit. IV sedation was administered by Anesthesia under continuous monitoring. Initially the Olympus GIF-190 video endoscope was inserted into the mouth. Esophagus intubated without any difficulty. It was gradually advanced into the stomach and duodenum and carefully examined. The bulb and the second part of the duodenum appeared normal, with biopsies taken. The scope at this time was with drawn to the stomach, adequately insufflated with air, and upon careful examination, mucosa of the antrum, body, cardia and the fundus appeared grossly normal except for linear areas of streaking erythema in the antrum and body suggestive of mild gastritis with biopsies of antrum and body taken. The scope was then withdrawn into the esophagus. The GE junction was located at 39 cm from the incisors, with a small hiatal hernia noted. The esophagus appeared normal, with mid esophageal biopsies taken in the setting of esophageal dysphagia. There were no erosions or ulcerations seen and the patient tolerated the procedure well. IMPRESSION: 1. Mild gastritis antrum and body, biopsied. 2. Small hiatal hernia. 3. Biopsies of the duodenum and midesophagus. RECOMMENDATIONS: The findings of this examination were discussed with the patient and her daughter. Continue current omeprazole twice daily therapy. Await pathology from biopsies. Lifestyle modifications including sitting upright while eating, subsequent water between bites of solid food and not lying down for 2 hours after eating have all been discussed. The patient continues to have symptoms of esophageal dysphagia can consider esophageal manometry for further evaluation.
[2019-07-21 14:40] VITALS: BP 104/61; PULSE 83; RESP 18
== END 2019-07-21 15:14 | disposition home or self-care (01) ==
LOC: ORWHC2ENDO 12:32
PROVIDERS: ATTEND Internal Medicine
DX: K29.50 Unspecified chronic gastritis without bleeding (principal); K44.9 Diaphragmatic hernia without obstruction or gangrene; I10 Essential (primary) hypertension; F32.9 Major depressive disorder, single episode, unspecified; E07.9 Disorder of thyroid, unspecified; Z90.2 Acquired absence of lung [part of]; Z85.118 Personal history of other malignant neoplasm of bronchus and lung; Z92.3 Personal history of irradiation; Z79.899 Other long term (current) drug therapy; Z87.891 Personal history of nicotine dependence; Z88.0 Allergy status to penicillin; Z88.8 Allergy status to other drugs, medicaments and biological substances; Z79.890 Hormone replacement therapy; Z90.49 Acquired absence of other specified parts of digestive tract; Z90.710 Acquired absence of both cervix and uterus; Z98.890 Other specified postprocedural states
CPT/HCPCS: 88305; 43239; J2001; J2704

== ENCOUNTER → 2019-07-28 | Outpatient (CLI) | payer MEDICARE, OTHER ==
--- NOTE | 2019-07-29 10:03 | MR ---
MR chest with and without contrast HISTORY: Lung cancer and chest wall pain Multiplanar multisequence and postcontrast images obtained from the chest following 6 cc Gadavist IV. Correlation to nuclear medicine PET/CT 06/12/2019, chest x-ray 07/01/2019 There is a small left pleural effusion present. Abnormal signal within the left lower lobe correspond s to abnormal density seen on the PET/CT with associated hypermetabolic uptake and is likely related to patient's lung carcinoma. Underlying interstitial changes, emphysema present within the lungs. The re is some enhancement of the abnormal soft tissue in the left lower lobe consistent with patient's k nown lung carcinoma. Aorticopulmonary window node is again seen with some peripheral enhancement. Lef t hilar adenopathy is also present. IMPRESSION: Findings compatible with patient's history of lung carcinoma, there is a small left pleur al effusion. Additional findings above.
== END | disposition home or self-care (01) ==
LOC: RADMRIMAIN 15:07
PROVIDERS: ATTEND Internal Medicine Hematology & Oncology
DX: J90 Pleural effusion, not elsewhere classified (principal); J43.9 Emphysema, unspecified; C34.32 Malignant neoplasm of lower lobe, left bronchus or lung; R91.1 Solitary pulmonary nodule; J84.89 Other specified interstitial pulmonary diseases; R59.0 Localized enlarged lymph nodes; R07.9 Chest pain, unspecified
CPT/HCPCS: 71552; A9585

== ENCOUNTER 2019-09-01 16:22 | Inpatient (IN) | payer MEDICARE, OTHER ==
[2019-09-01] MEDS ORDERED: PANTOPRAZOLE 40 MG/10 ML VIAL IVP STA (16:45)
--- NOTE | 2019-09-01 16:57 | ED ---
General Adult HPI - General Chief complaint: Nausea/Vomiting/Diarrhea Stated complaint: VOMITING BLOOD Time Seen by Provider: 09/01/19 16:30 Source: patient, RN notes reviewed, old records reviewed Mode of arrival: wheelchair Limitations: no limitations - History of Present Illness Initial comments: This is a 73-year-old female presents to the emergency department with a past medical history significant for terminal lung cancer. Patient states at 4:00 approximate 40 minutes prior to arrival she full flexion upset stomach and then she vomited times one which was all blood. Patient states she has no abdominal pain. Patient denies any shortness of breath or chest pain. Patient states she has been coughing a lot lately because she's been without her codeine but she is no more short of breath than she normally is. She denies any hematemesis. Patient denies any significant bloody noses recently. Patient denies any patient denies numbness weakness. Patient denies any fevers or chills. Patient does states she's been feeling weak lately. She denies being on any blood thinners. Patient states that she has had surgery on her left lung secondary to cancer. - Related Data Home Medications Medication Instructions Recorded Confirmed Atorvastatin [Lipitor] 10 mg PO DAILY@0930 05/27/17 09/01/19 FLUoxetine HCL [PROzac] 20 mg PO DAILY@0930 05/27/17 09/01/19 Hydrocodone/Acetaminophen [[place] 1 tab PO QID@,,17,21 05/27/17 09/01/19 10-325] Levothyroxine Sodium [Synthroid] 125 mcg PO DAILY@0930 05/27/17 09/01/19 Omeprazole 40 mg PO BID@0930,2100 07/17/19 09/01/19 Opdivo(Dose Unknown) 1 dose IV QMONTH 07/17/19 09/01/19 amLODIPine [Norvasc] 10 mg PO DAILY@0930 07/17/19 09/01/19 Albuterol Nebulized [Ventolin 2.5 mg INHALATION RT-BID@1000,2200 09/01/19 09/01/19 Nebulized] Albuterol Sulfate [Proair Hfa] 2 puff INHALATION RT-QID 09/01/19 09/01/19 Budesonide(Unknown Dose) 1 vial INHALATION RT-DAILY@1400 09/01/19 09/01/19 Liothyronine Sodium [Cytomel] 25 mcg PO DAILY@0930 09/01/19 09/01/19 Megestrol Acetate [Megace] 800 mg PO BID@1000,1700 09/01/19 09/01/19 Polyethylene Glycol 3350 [Miralax] 17 gm PO DAILY@1000 09/01/19 09/01/19 Zolpidem Tartrate [Ambien] 10 mg PO HS@2100 09/01/19 09/01/19 guaiFENesin-Coden 100-10MG/5ML 10 ml PO QID@10,14,18,22 09/01/19 09/01/19 [Robitussin AC] Allergies Allergy/AdvReac Type Severity Reaction Status Date / Time hydrochlorothiazide Allergy SWELLING Verified 09/01/19 18:11 [From Zestoretic] FACE AND LIPS lisinopril [From Zestoretic] Allergy SWELLING Verified 09/01/19 18:11 FACE AND LIPS Penicillins Allergy Rash/Hives Verified 09/01/19 18:11 pravastatin [From Pravachol] Allergy Swelling Verified 09/01/19 18:11 Review of Systems ROS Statement: Those systems with pertinent positive or pertinent negative responses have been documented in the HPI. ROS Other: All systems not noted in ROS Statement are negative. Past Medical History Past Medical History: Cancer, Chest Pain / Angina, COPD, CVA/TIA, GERD/Reflux, Hyperlipidemia, Hypertension, Osteoarthritis (OA), Thyroid Disorder Additional Past Medical History / Comment(s): ANEURYSM RT SIDE OF HEAD, hx TIA- no residual effects, abdominal pain, nausea and vomting, lung cancer(getting monthly tx with opdivo at [facility])-had chemo and radiation-finished 12/2018 History of Any Multi-Drug Resistant Organisms: None Reported Past Surgical History: Appendectomy, Cholecystectomy, Hernia Repair, Hysterectomy, Orthopedic Surgery Additional Past Surgical History / Comment(s): bilateral carpal tunnel, trigger finger left hand, tumor removal left lung, RT ROTATOR CUFF REPAIR rt shoulder, RT TENNIS ELBOW REPAIR, COLONOSCOPY, tumor removed from left side of abdomen as child Past Anesthesia/Blood Transfusion Reactions: No Reported Reaction Past Psychological History: Depression Smoking Status: Former smoker Past Alcohol Use History: None Reported Past Drug Use History: None Reported - Past Family History Sister(s) Family Medical History: Cancer General Exam - General Exam Comments Initial Comments: GENERAL: Patient is well-developed and well-nourished. Patient is nontoxic and well- hydrated and is in mild distress. ENT: Neck is soft and supple. No significant lymphadenopathy is noted. Oropharynx is clear. Moist mucous membranes. Neck has full range of motion without eliciting any pain. EYES: The sclera were anicteric and conjunctiva were pink and moist. Extraocular movements were intact and pupils were equal round and reactive to light. Eyelids were unremarkable. PULMONARY: Patient has diminished breath sounds left base CARDIOVASCULAR: There is a regular rate and rhythm without any murmurs gallops or rubs. ABDOMEN: Soft and nontender with normal bowel sounds. SKIN: Skin is clear with no lesions or rashes and otherwise unremarkable. NEUROLOGIC: Patient is alert and oriented x3. Cranial nerves II through XII are grossly intact. Motor and sensory are also intact. Normal speech, volume and content. Symmetrical smile. MUSCULOSKELETAL: Normal extremities with adequate strength and full range of motion. No lower extremity swelling or edema. No calf tenderness. LYMPHATICS: No significant lymphadenopathy is noted PSYCHIATRIC: Normal psychiatric evaluation. Limitations: no limitations Course Vital Signs 09/01/19 09/01/19 16:30 19:02 Temperature 97.7 F Pulse Rate 98 80 Respiratory 22 16 Rate Blood Pressure 107/64 122/52 O2 Sat by Pulse 90 L 96 Oximetry Medical Decision Making - Medical Decision Making Patient had no vomiting while in the emergency department Patient had no difficulty breathing or shortness of breath while in the emergency department. Chest x-ray did show what appeared to be some pulmonary edema again she was asymptomatic I spoke with Dr. Smallwood he agreed to admit the patient admitted the patient I wrote admitting orders I consulted Dr. Milian as he did not believe the patient needed to go to the ICU and the patient could be admitted to the floor EKG shows a sinus rhythm at a rate of 81 bpm [place] interval 130 dresses 80 QT interval 376 QTC is 436. Patient's EKG shows an occasional PAC but there is no ST segment elevation or depression. - Lab Data Result diagrams: 09/01/19 16:44 09/01/19 16:44 Lab Results 09/01/19 09/01/19 09/01/19 Range/Units 16:44 16:44 16:44 WBC 13.4 H (3.8-10.6) k/uL RBC 3.56 L (3.80-5.40) m/uL Hgb 9.5 L (11.4-16.0) gm/dL Hct 30.7 L (34.0-46.0) % MCV 86.2 (80.0-100.0) fL MCH 26.6 (25.0-35.0) pg MCHC 30.9 L (31.0-37.0) g/dL RDW 16.5 H (11.5-15.5) % Plt Count 695 H (150-450) k/uL Neutrophils % 88 % Lymphocytes % 6 % Monocytes % 3 % Eosinophils % 1 % Basophils % 0 % Neutrophils # 11.8 H (1.3-7.7) k/uL Lymphocytes # 0.8 L (1.0-4.8) k/uL Monocytes # 0.4 (0-1.0) k/uL Eosinophils # 0.1 (0-0.7) k/uL Basophils # 0.0 (0-0.2) k/uL Hypochromasia Moderate Anisocytosis Slight PT 10.6 (9.0-12.0) sec INR 1.0 (<1.2) APTT 26.6 (22.0-30.0) sec Sodium 134 L (137-145) mmol/L Potassium 4.8 (3.5-5.1) mmol/L Chloride 100 (98-107) mmol/L Carbon Dioxide 23 (22-30) mmol/L Anion Gap 11 mmol/L BUN 16 (7-17) mg/dL Creatinine 0.45 L (0.52-1.04) mg/dL Est GFR (CKD-EPI)AfAm >90 (>60 ml/min/1.73 sqM) Est GFR (CKD-EPI)NonAf >90 (>60 ml/min/1.73 sqM) Glucose 112 H (74-99) mg/dL Calcium 9.0 (8.4-10.2) mg/dL Magnesium 1.7 (1.6-2.3) mg/dL Total Bilirubin 0.6 (0.2-1.3) mg/dL AST 30 (14-36) U/L ALT 42 (9-52) U/L Alkaline Phosphatase 183 H (38-126) U/L Total Protein 6.0 L (6.3-8.2) g/dL Albumin 2.8 L (3.5-5.0) g/dL Blood Type Blood Type Confirm Blood Type Recheck Bld Type Recheck Status Antibody Screen Spec Expiration Date 09/01/19 09/01/19 Range/Units 16:48 16:49 WBC (3.8-10.6) k/uL RBC (3.80-5.40) m/uL Hgb (11.4-16.0) gm/dL Hct (34.0-46.0) % MCV (80.0-100.0) fL MCH (25.0-35.0) pg MCHC (31.0-37.0) g/dL RDW (11.5-15.5) % Plt Count (150-450) k/uL Neutrophils % % Lymphocytes % % Monocytes % % Eosinophils % % Basophils % % Neutrophils # (1.3-7.7) k/uL Lymphocytes # (1.0-4.8) k/uL Monocytes # (0-1.0) k/uL Eosinophils # (0-0.7) k/uL Basophils # (0-0.2) k/uL Hypochromasia Anisocytosis PT (9.0-12.0) sec INR (<1.2) APTT (22.0-30.0) sec Sodium (137-145) mmol/L Potassium (3.5-5.1) mmol/L Chloride (98-107) mmol/L Carbon Dioxide (22-30) mmol/L Anion Gap mmol/L BUN (7-17) mg/dL Creatinine (0.52-1.04) mg/dL Est GFR (CKD-EPI)AfAm (>60 ml/min/1.73 sqM) Est GFR (CKD-EPI)NonAf (>60 ml/min/1.73 sqM) Glucose (74-99) mg/dL Calcium (8.4-10.2) mg/dL Magnesium (1.6-2.3) mg/dL Total Bilirubin (0.2-1.3) mg/dL AST (14-36) U/L ALT (9-52) U/L Alkaline Phosphatase (38-126) U/L Total Protein (6.3-8.2) g/dL Albumin (3.5-5.0) g/dL Blood Type O Positive Blood Type Confirm O Positive Blood Type Recheck No Previous Record Bld Type Recheck Status CABO Indicated Antibody Screen NEGATIVE Spec Expiration Date 09/04/2019 - 2345 Disposition Clinical Impression: Hematemesis, Anemia, History of lung cancer Disposition: ADMITTED IP TO THIS HOSP Referrals: Long Cespedes MD [Primary Care Provider] - 1-2 days Time of Disposition: 19:16
[2019-09-01 17:26] LABS: Anisocytosis Slight; Basophils % (A) 0 %; Eosinophils # (A) 0.1 k/uL (0-0.7); Eosinophils % (A) 1 %; HCT 30.7 % (34.0-46.0); HGB 9.5 gm/dL (11.4-16.0); Hypochromasia Moderate; Lymphocytes # (A) 0.8 k/uL (1.0-4.8); Lymphocytes % (A) 6 %; MCH 26.6 pg (25.0-35.0); MCHC 30.9 g/dL (31.0-37.0); MCV 86.2 fL (80.0-100.0); Mean Platelet Volume 5.9; Monocytes # (A) 0.4 k/uL (0-1.0); Monocytes % (A) 3 %; Neutrophils # (A) 11.8 k/uL (1.3-7.7); Neutrophils % (A) 88 %; Platelet Count 695 k/uL (150-450); RBC 3.56 m/uL (3.80-5.40); RDW 16.5 % (11.5-15.5); WBC 13.4 k/uL (3.8-10.6)
--- NOTE | 2019-09-01 17:27 | XR ---
EXAMINATION TYPE: XR chest 2V DATE OF EXAM: 09/01/2019 COMPARISON: 07/01/2019 HISTORY: Vomiting TECHNIQUE: Frontal and lateral views of the chest are obtained. FINDINGS: There is coarse interstitial infiltrate throughout the lungs. There is some spiculation an d increased density at the left pulmonary hilum. There is blunting left costophrenic angle. IMPRESSION: Increased pulmonary interstitial edema compared to last exam. This could relate to lymph angitic metastatic disease. Increasing infiltrate and pleural fluid left lower lobe.
[2019-09-01 17:34] LABS: Partial Thromboplastin Time 26.6 sec (22.0-30.0); Prothrombin Time 10.6 sec (9.0-12.0)
[2019-09-01 17:52] LABS: ALT 42 U/L (9-52); AST 30 U/L (14-36); African American GFR (CKD) >90 (>60 ml/min/1.73 sqM); Albumin 2.8 g/dL (3.5-5.0); Alkaline Phosphatase 183 U/L (38-126); Anion Gap 11 mmol/L; Blood Urea Nitrogen 16 mg/dL (7-17); Carbon Dioxide 23 mmol/L (22-30); Chloride 100 mmol/L (98-107); Glucose 112 mg/dL (74-99); Magnesium 1.7 mg/dL (1.6-2.3); Non-African American GFR(CKD) >90 (>60 ml/min/1.73 sqM); Potassium 4.8 mmol/L (3.5-5.1); Sodium 134 mmol/L (137-145); Total Bilirubin 0.6 mg/dL (0.2-1.3)
[2019-09-01] MEDS ORDERED: SODIUM CHLORIDE 0.9% 1,000 ML IV ONE (19:16)
[2019-09-01 19:42] LABS: Anisocytosis Slight; Basophils % (A) 0 %; Eosinophils # (A) 0.2 k/uL (0-0.7); Eosinophils % (A) 1 %; HCT 28.1 % (34.0-46.0); HGB 8.8 gm/dL (11.4-16.0); Hypochromasia Slight; Lymphocytes # (A) 0.8 k/uL (1.0-4.8); Lymphocytes % (A) 6 %; MCH 26.8 pg (25.0-35.0); MCHC 31.4 g/dL (31.0-37.0); MCV 85.3 fL (80.0-100.0); Mean Platelet Volume 6.1; Monocytes # (A) 0.4 k/uL (0-1.0); Monocytes % (A) 3 %; Neutrophils # (A) 12.3 k/uL (1.3-7.7); Neutrophils % (A) 89 %; Platelet Count 616 k/uL (150-450); RDW 16.4 % (11.5-15.5); WBC 13.9 k/uL (3.8-10.6)
[2019-09-01] MEDS ORDERED: MORPHINE SULFATE 2 MG/ML SYRINGE IVP STA (20:34)
[2019-09-01] MEDS: ZOLPIDEM 10 MG TAB PO SCH (21:52)
[2019-09-01] MEDS ORDERED: ALBUTEROL NEBULIZED 2.5 MG/3 ML INHALATION SCH (22:00)
[2019-09-02 02:20] LABS: Anisocytosis Slight; Basophils # (A) 0.1 k/uL (0-0.2); Basophils % (A) 0 %; Eosinophils # (A) 0.2 k/uL (0-0.7); Eosinophils % (A) 1 %; HCT 27.5 % (34.0-46.0); HGB 8.6 gm/dL (11.4-16.0); Hypochromasia Slight; Lymphocytes # (A) 0.9 k/uL (1.0-4.8); Lymphocytes % (A) 6 %; MCH 26.7 pg (25.0-35.0); MCHC 31.2 g/dL (31.0-37.0); MCV 85.7 fL (80.0-100.0); Mean Platelet Volume 6.3; Monocytes # (A) 0.5 k/uL (0-1.0); Monocytes % (A) 3 %; Neutrophils # (A) 13.3 k/uL (1.3-7.7); Neutrophils % (A) 88 %; Platelet Count 600 k/uL (150-450); RDW 16.6 % (11.5-15.5)
[2019-09-02] MEDS: guaiFENesin-Coden 100-10MG/5ML 10 ML CUP PO PRN ×2 (04:07→20:23)
[2019-09-02] MEDS: HYDROcodone/APAP 10-325MG 1 EACH TAB PO PRN ×5 (04:07→21:29)
[2019-09-02 06:35] LABS: Anisocytosis Slight; HCT 27.2 % (34.0-46.0); HGB 8.5 gm/dL (11.4-16.0); MCH 26.8 pg (25.0-35.0); MCHC 31.3 g/dL (31.0-37.0); MCV 85.7 fL (80.0-100.0); Mean Platelet Volume 6.3; Platelet Count 613 k/uL (150-450); RBC 3.17 m/uL (3.80-5.40); RDW 17.2 % (11.5-15.5); WBC 15.9 k/uL (3.8-10.6)
[2019-09-02] MEDS: LEVOTHYROXINE 125 MCG TAB PO SCH (08:27)
[2019-09-02] MEDS: FLUoxetine HCL 20 MG CAP PO SCH (08:28)
[2019-09-02] MEDS: MEGESTROL 400 MG/10 ML CUP PO SCH ×2 (08:28→17:52)
[2019-09-02] MEDS: ATORVASTATIN 10 MG TAB PO SCH (08:28)
[2019-09-02] MEDS: LIOTHYRONINE SODIUM 5 MCG TAB PO SCH (08:29)
[2019-09-02] MEDS ORDERED: HYDROcodone/APAP 10-325MG 1 EACH TAB PO SCH (09:00)
[2019-09-02] MEDS: ALBUTEROL NEBULIZED 2.5 MG/3 ML INHALATION SCH ×3 (09:13→21:31)
[2019-09-02] MEDS: PANTOPRAZOLE 40 MG/10 ML VIAL IVP SCH ×2 (12:20→20:24)
--- NOTE | 2019-09-02 15:27 | CONS ---
CONSULTATION DATE OF SERVICE: 09/02/2019 REASON FOR CONSULTATION: Nausea, vomiting and hematemesis. HISTORY OF PRESENT ILLNESS: The patient is a 73-year-old white female with history of lung cancer for which she underwent chemoradiation therapy that ended in December of this year, presently on immunotherapy. Was admitted to the hospital when she presented to the emergency room with some epigastric discomfort followed by nausea, vomiting, and hematemesis. The patient states that she had one episode of hematemesis and since being in the hospital, no further episodes of nausea, vomiting, or hematemesis. However, she continues to have chronic cough and each time she brings up some bloody sputum. She denies any recent NSAID use. No prior history of peptic ulcer disease. She did have an upper endoscopy by Dr. Tatum in July for GERD symptoms and it showed evidence of a mild gastritis and a small hiatal hernia. She denies any prior history of peptic ulcer disease. PAST MEDICAL HISTORY: Significant for lung cancer for which she follows Dr. Shine, presently on immunotherapy. History of hypertension, hyperlipidemia, anxiety, depression, hypothyroidism, and COPD. MEDICATIONS: At home include Robitussin, MiraLAX, Ambien, vitamin, Megace, albuterol, OptiVol, Norvasc, omeprazole, Synthroid, Prozac, and Lipitor. ALLERGIES: RESTORETIC, PRAVASTATIN and PENICILLIN. SOCIAL HISTORY: Former smoker. No alcohol use. PAST SURGICAL HISTORY: Hysterectomy, cholecystectomy, appendectomy, bilateral carpal tunnel repair, EGD July of this year. REVIEW OF SYSTEMS: CARDIOPULMONARY: cough with some hemoptysis. Denies any chest pain. GI: As mentioned above. NEUROLOGY: Unremarkable. PSYCHIATRIC: Unremarkable. ENT/VISION: Unremarkable. CONSTITUTIONAL: No recent weight loss. No fever, chills, night sweats. HEMATOLOGY: Unremarkable, other than mild anemia. PHYSICAL EXAMINATION: She appears comfortable, in no apparent distress. Vital signs are stable. Blood pressure 114/61, pulse is 96, temperature 98.1. HEENT: Examination unremarkable. Conjunctivae are pink, sclerae nonicteric. Oral cavity no lesions. NECK: No JVD or lymph node enlargement. CHEST: Clear to auscultation. HEART: Regular rate and rhythm. ABDOMEN: Soft. There was mild tenderness in the epigastric and in the left upper quadrant area. The rest of the abdomen was benign. Bowel sounds are positive. No organomegaly. EXTREMITIES: No pedal edema. SKIN: No rashes. NEUROLOGIC: Alert and oriented x3. No focal deficits. LABS: From the time of admission to the hospital, WBC was 13.4, hemoglobin 9.5, platelets 696, ALT, AST, T bilirubin were normal. Alkaline phosphatase was slightly elevated at 183. PT, INR was within normal limits. Lab from today, hemoglobin is down to 8.5, WBC is 15.9, and platelets are 613. IMPRESSION: 1. Acute onset of nausea and vomiting and hematemesis x1 yesterday. Patient did not have any further episodes of bleeding since being in the hospital. Her initial hemoglobin was 9.5, dropped to 8.5 g/dL today. She did have an upper endoscopy by Dr. Tatum as mentioned above on July 20, that showed mild gastritis and small hiatal hernia. She denies any recent NSAID use or prior history of peptic ulcer disease. At this time possibility of a Calli-Deal tear or gastritis needs to be considered. She is hemodynamically stable and clinically does not have any evidence of active ongoing bleeding. 2. Cough with hemoptysis. 3. History of lung cancer, status post chemo radiation that ended in December of this year, presently on immunotherapy with OptiVol. She follows Dr. Shine on outpatient basis. RECOMMENDATIONS: 1. Continue with Protonix 40 mg q.12 hours. 2. Will start her on a clear liquid diet. 3. Since the patient did have an upper endoscopy only 3 weeks ago, I do not plan on repeating her upper endoscopy at the present time. However, if she continues to have a further ongoing bleeding, will consider further endoscopic intervention. At this time will monitor CBC on a daily basis and follow her closely during the hospital stay. Thank you for this consultation. MMODL / IJN: [id number] /
--- NOTE | 2019-09-02 18:32 | P.HPIM ---
History of Present Illness H&P Date: 09/02/19 Chief Complaint: Vomited blood History of presenting complaint: This is a very pleasant 73-year-old patient of Dr. flores. Chronic stable medical conditions include COPD, GERD, hyperlipidemia, hypertension, osteoarthritis, hypothyroid. Patient has a diagnosis of lung cancer and affect chemoirradiation for admission December 2018. Currently receiving opdivo at [facility]. Patient's oncologist is Dr. Shine. Patient presented after she vomited about a cupful of blood. Rather significant amount. About 3 weeks ago she did have what EGD by Dr. Fatima. That showed some gastritis. Biopsy results unremarkable. Patient's appetite is somewhat okay. Has been losing b lood. Is on home oxygen 2 L. Does get short of breath and tired. Lives with her daughter. Review of systems: GEN.: Weak tired EYES: None HEENT: None NECK: None RESPIRATORY: Some shortness of breath CARDIOVASCULAR: None GASTROINTESTINAL: As above, some abdominal discomfort GENITOURINARY: None MUSCULOSKELETAL: Joint pains LYMPHATICS: None HEMATOLOGICAL: [As above PSYCHIATRY: Some depression NEUROLOGICAL: None Social history: Smoked for about 40 years, stopped in 2018. Lives with her daughter. No alcohol. Family history: Cancer Physical examination: VITAL SIGNS: 97.7, 98, 22, 107/64, 90% on 2 L GENERAL: BMI 19.7, sitting up awake tired. EYES: Pupils equal. Conjunctiva palel. HEENT: External appearance of nose and ears normal, oral cavity grossly normal. NECK: JVD not raised; masses not palpable. HEART: First and second heart sounds are normal; no edema. LUNGS: Respiratory rate increased, diminished breath sounds. ABDOMEN: Soft, nontender, liver spleen not palpable, no masses palpable. PSYCH: Alert and oriented x3; mood and affect slightly anxiousl. NEUROLOGICAL: Cranial nerves grossly intact; no facial asymmetry, power and sensation grossly intact. LYMPHATICS: No lymph nodes palpable in the axilla and neck INVESTIGATIONS, reviewed in the clinical context: White count 3.4 hemoglobin 9.5 repeat this morning 8.5 platelet 695 progression 4.8 creatinine 0.45 Albumin 2.8 EKG tracing personally reviewed by me shows normal sinus rhythm some flipped T waves in anterior leads Chest x-ray film personally reviewed by me-shows increased interstitial and possible mass and infiltrate Assessment: -Acute hematemesis in a patient with occasionally 3 weeks ago that showed some gastritis and a biopsy results unremarkable -Normocytic anemia likely from underlying malignancy -Lung cancer status post chemoradiation treatment currently in on opdivo -COPD in an ex-smoker -GERD -Essential hypertension Hyperlipidemia -Primary osteoarthritis -Hypothyroid -CODE STATUS: DO NOT RESUSCITATE Plan: -Patient H&H is being carried out. GI was consulted. Further plan. Patient is no further bleeding or drop in hemoglobin day may consider repeat endoscopy. Otherwise to washed the patient conservatively right now. Other home medications resumed. Patient be started on clear liquids later tonight. We'll put the patient on bronchodilators. Patient recently put on Megace by her PCP and responded to same. Hold off any IV fluids. Care was discussed with the patient daughter the bedside. Past Medical History Past Medical History: Cancer, Chest Pain / Angina, COPD, CVA/TIA, GERD/Reflux, Hyperlipidemia, Hypertension, Osteoarthritis (OA), Thyroid Disorder Additional Past Medical History / Comment(s): ANEURYSM RT SIDE OF HEAD, hx TIA- no residual effects, abdominal pain, nausea and vomting, lung cancer(getting monthly tx with opdivo at [facility])-had chemo and radiation-finished 12/2018 History of Any Multi-Drug Resistant Organisms: None Reported Past Surgical History: Appendectomy, Cholecystectomy, Hernia Repair, Hysterectomy, Orthopedic Surgery Additional Past Surgical History / Comment(s): bilateral carpal tunnel, trigger finger left hand, tumor removal left lung, RT ROTATOR CUFF REPAIR rt shoulder, RT TENNIS ELBOW REPAIR, COLONOSCOPY, tumor removed from left side of abdomen as child Past Anesthesia/Blood Transfusion Reactions: No Reported Reaction Past Psychological History: Depression Smoking Status: Former smoker Past Alcohol Use History: None Reported Additional Past Alcohol Use History / Comment(s): started smoking 1977, quit Aug 2018- smoked on and off Past Drug Use History: None Reported - Past Family History Sister(s) Family Medical History: Cancer Medications and Allergies Home Medications Medication Instructions Recorded Confirmed Type Atorvastatin [Lipitor] 10 mg PO DAILY@92905/27/17 09/01/19 History FLUoxetine HCL [PROzac] 20 mg PO DAILY@92905/27/17 09/01/19 History Hydrocodone/Acetaminophen [[place] 1 tab PO QID@,,17,05/27/17 09/01/19 History 10-325] Levothyroxine Sodium [Synthroid] 125 mcg PO DAILY@0930 05/27/17 09/01/19 History Omeprazole 40 mg PO BID@0930,2100 07/17/19 09/01/19 History Opdivo(Dose Unknown) 1 dose IV QMONTH 07/17/19 09/01/19 History amLODIPine [Norvasc] 10 mg PO DAILY@0930 07/17/19 09/01/19 History Albuterol Nebulized [Ventolin 2.5 mg INHALATION RT-BID@1000,2200 09/01/19 History Nebulized] Albuterol Sulfate [Proair Hfa] 2 puff INHALATION RT-QID 09/01/19 09/01/19 History Budesonide(Unknown Dose) 1 vial INHALATION RT-DAILY@1400 09/01/19 09/01/19 History Liothyronine Sodium [Cytomel] 25 mcg PO DAILY@0930 09/01/19 09/01/19 History Megestrol Acetate [Megace] 800 mg PO BID@1000,1700 09/01/19 09/01/19 History Polyethylene Glycol 3350 [Miralax] 17 gm PO DAILY@1000 09/01/19 09/01/19 History Zolpidem Tartrate [Ambien] 10 mg PO HS@2100 09/01/19 09/01/19 History guaiFENesin-Coden 100-10MG/5ML 10 ml PO QID@10,14,18,22 09/01/19 09/01/19 History [Robitussin AC] Allergies Allergy/AdvReac Type Severity Reaction Status Date / Time hydrochlorothiazide Allergy SWELLING Verified 09/01/19 18:11 [From Zestoretic] FACE AND LIPS lisinopril [From Zestoretic] Allergy SWELLING Verified 09/01/19 18:11 FACE AND LIPS Penicillins Allergy Rash/Hives Verified 09/01/19 18:11 pravastatin [From Pravachol] Allergy Swelling Verified 09/01/19 18:11 Physical Exam Vitals: Vital Signs Temp Pulse Pulse Resp BP BP Pulse Ox 09/02/19 09:24 90 09/02/19 09:13 90 09/02/19 04:07 99.7 F H 95 18 109/54 94 L 09/01/19 23:57 98 18 106/49 95 09/01/19 20:58 91 20 107/50 95 09/01/19 19:02 80 16 122/52 96 09/01/19 16:30 97.7 F 98 22 107/64 90 L Intake and Output 09/01/19 09/02/19 09/02/19 22:59 06:59 14:59 Other: # Voids 1 Weight 53.524 kg 52.8 kg Results CBC & Chem 7: 09/02/19 05:58 09/01/19 16:44 Labs: Abnormal Lab Results - Last 24 Hours (Table) 09/01/19 09/01/19 09/01/19 Range/Units 16:44 16:44 19:31 WBC 13.4 H 13.9 H (3.8-10.6) k/uL RBC 3.56 L 3.30 L (3.80-5.40) m/uL Hgb 9.5 L 8.8 L (11.4-16.0) gm/dL Hct 30.7 L 28.1 L (34.0-46.0) % MCHC 30.9 L (31.0-37.0) g/dL RDW 16.5 H 16.4 H (11.5-15.5) % Plt Count 695 H 616 H (150-450) k/uL Neutrophils # 11.8 H 12.3 H (1.3-7.7) k/uL Lymphocytes # 0.8 L 0.8 L (1.0-4.8) k/uL Sodium 134 L (137-145) mmol/L Creatinine 0.45 L (0.52-1.04) mg/dL Glucose 112 H (74-99) mg/dL Alkaline Phosphatase 183 H (38-126) U/L Total Protein 6.0 L (6.3-8.2) g/dL Albumin 2.8 L (3.5-5.0) g/dL 09/02/19 09/02/19 Range/Units 01:59 05:58 WBC 15.0 H 15.9 H (3.8-10.6) k/uL RBC 3.20 L 3.17 L (3.80-5.40) m/uL Hgb 8.6 L 8.5 L (11.4-16.0) gm/dL Hct 27.5 L 27.2 L (34.0-46.0) % MCHC (31.0-37.0) g/dL RDW 16.6 H 17.2 H (11.5-15.5) % Plt Count 600 H 613 H (150-450) k/uL Neutrophils # 13.3 H (1.3-7.7) k/uL Lymphocytes # 0.9 L (1.0-4.8) k/uL Sodium (137-145) mmol/L Creatinine (0.52-1.04) mg/dL Glucose (74-99) mg/dL Alkaline Phosphatase (38-126) U/L Total Protein (6.3-8.2) g/dL Albumin (3.5-5.0) g/dL Thrombosis Risk Factor Assmnt - Choose All That Apply Each Factor Represents 1 point: Abnormal pulmonary function (COPD) Each Risk Factor Represents 2 Points: Age 61-74 years Thrombosis Risk Factor Assessment Total Risk Factor Score: 3 Thrombosis Risk Factor Assessment Level: Moderate Risk
[2019-09-02] MEDS: IPRATROPIUM-ALBUTEROL 3 ML NEB INHALATION SCH (19:02)
[2019-09-02] MEDS: BUDESONIDE 1 MG/2 ML NEBU INHALATION SCH (19:02)
--- NOTE | 2019-09-02 19:28 | P.CONS ---
History of Present Illness - Reason for Consult Consult date: 09/02/19 non-small cell lung cancer Requesting physician: Anselmo Durand - Chief Complaint hematemesis - History of Present Illness Mrs. Caro is a pleasant female patient of Dr. Shine who was found to have a suspicious mass on routine mammogram in early September 2013. Patient had a stereotactic biopsy, revealing DCIS, ER/NM positive. She had localized needle lumpectomy, no residual tumor on additional excision. Patient was seen for treatment recommendations she decided to forego radiation and tamoxifen was recommended. Patient was not seen in the office again until October 2018. 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 Shine for treatment recommendations. Staging showed mediastinal disease only. In December 2018 she completed concurrent chemo/radiation. Patient started nivolumab with decent tolerance. She is status post 3 cycles. Patient was diagnosed with iron deficiency, status post parenteral iron administration. Patient came to the emergency department with complaints of hematemesis 1, associated with nausea and diarrhea. Patient is never had anything like this before, she denies any dark stool at this time. Since the hematemesis patient has also had hemoptysis. She denies ever having this before. She is having rib pain that goes across the entire chest, intermittent, not persistent or progressive, some increased shortness of breath and cough. Patient does have a history of iron deficiency, she received Feraheme in late July, her baseline hemoglobin is 9.5-10.5, Patient is documented in the office as having complaints of discharge and reflux back in June, she was started on PPI at that time. on admission her hemoglobin is 8.5, coags are within normal limits. Review of Systems 14 point review of systems is negative except as stated in HPI Past Medical History Past Medical History: Cancer, Chest Pain / Angina, COPD, CVA/TIA, GERD/Reflux, Hyperlipidemia, Hypertension, Osteoarthritis (OA), Thyroid Disorder Additional Past Medical History / Comment(s): ANEURYSM RT SIDE OF HEAD, hx TIA- no residual effects, abdominal pain, nausea and vomting, lung cancer(getting monthly tx with opdivo at [facility])-had chemo and radiation-finished 12/2018 History of Any Multi-Drug Resistant Organisms: None Reported Past Surgical History: Appendectomy, Cholecystectomy, Hernia Repair, Hysterectomy, Orthopedic Surgery Additional Past Surgical History / Comment(s): bilateral carpal tunnel, trigger finger left hand, tumor removal left lung, RT ROTATOR CUFF REPAIR rt shoulder, RT TENNIS ELBOW REPAIR, COLONOSCOPY, tumor removed from left side of abdomen as child Past Anesthesia/Blood Transfusion Reactions: No Reported Reaction Past Psychological History: Depression Smoking Status: Former smoker Past Alcohol Use History: None Reported Additional Past Alcohol Use History / Comment(s): started smoking 1977, quit Aug 2018- smoked on and off Past Drug Use History: None Reported - Past Family History Sister(s) Family Medical History: Cancer Medications and Allergies Home Medications Medication Instructions Recorded Confirmed Type Atorvastatin [Lipitor] 10 mg PO DAILY@0930 05/27/17 09/01/19 History FLUoxetine HCL [PROzac] 20 mg PO DAILY@0930 05/27/17 09/01/19 History Hydrocodone/Acetaminophen [[place] 1 tab PO QID@09,13,17,21 05/27/17 09/01/19 History 10-325] Levothyroxine Sodium [Synthroid] 125 mcg PO DAILY@0930 05/27/17 09/01/19 History Omeprazole 40 mg PO BID@0930,2100 07/17/19 09/01/19 History Opdivo(Dose Unknown) 1 dose IV QMONTH 07/17/19 09/01/19 History amLODIPine [Norvasc] 10 mg PO DAILY@0930 07/17/19 09/01/19 History Albuterol Nebulized [Ventolin 2.5 mg INHALATION RT-BID@1000,2200 09/01/19 09/01/19 History Nebulized] Albuterol Sulfate [Proair Hfa] 2 puff INHALATION RT-QID 09/01/19 09/01/19 History Budesonide(Unknown Dose) 1 vial INHALATION RT-DAILY@1400 09/01/19 09/01/19 History Liothyronine Sodium [Cytomel] 25 mcg PO DAILY@0930 09/01/19 09/01/19 History Megestrol Acetate [Megace] 800 mg PO BID@1000,1700 09/01/19 09/01/19 History Polyethylene Glycol 3350 [Miralax] 17 gm PO DAILY@1000 09/01/19 09/01/19 History Zolpidem Tartrate [Ambien] 10 mg PO HS@2100 09/01/19 09/01/19 History guaiFENesin-Coden 100-10MG/5ML 10 ml PO QID@10,14,18,22 09/01/19 09/01/19 History [Robitussin AC] Allergies Allergy/AdvReac Type Severity Reaction Status Date / Time hydrochlorothiazide Allergy SWELLING Verified 09/01/19 18:11 [From Zestoretic] FACE AND LIPS lisinopril [From Zestoretic] Allergy SWELLING Verified 09/01/19 18:11 FACE AND LIPS Penicillins Allergy Rash/Hives Verified 09/01/19 18:11 pravastatin [From Pravachol] Allergy Swelling Verified 09/01/19 18:11 Physical Exam Vitals: Vital Signs Temp Pulse Pulse Resp BP BP Pulse Ox 09/02/19 19:02 92 16 09/02/19 16:00 97.8 F 83 16 120/54 94 L 09/02/19 12:00 98.1 F 96 16 114/61 95 09/02/19 09:24 90 09/02/19 09:13 90 09/02/19 08:00 98.1 F 85 16 109/55 94 L 09/02/19 04:07 99.7 F H 95 18 109/54 94 L 09/01/19 23:57 98 18 106/49 95 09/01/19 20:58 91 20 107/50 95 Intake and Output 09/02/19 09/02/19 09/02/19 06:59 14:59 22:59 Intake Total 50 Balance 50 Intake: Oral 50 Other: # Voids 1 Weight 52.8 kg - Constitutional General appearance: average body habitus, cooperative, no acute distress - EENT Eyes: anicteric sclerae, EOMI ENT: hearing grossly normal, normal oropharynx - Neck Neck: no lymphadenopathy - Respiratory Respiratory: bilateral: CTA - Cardiovascular Rhythm: regular Heart sounds: normal: S1, S2 Abnormal Heart Sounds: no systolic murmur, no diastolic murmur, no rub, no S3 Gallop, no S4 Gallop, no click, no other leg Peripheral Edema: bilateral: None - Gastrointestinal General gastrointestinal: no absent bowel sounds, no decreased bowel sounds, no distended, no hepatomegaly, no hyperactive bowel sounds, normal bowel sounds, no organomegaly, no rigid, no scaphoid, soft, no splenomegaly, no tenderness, no umbilical hernia, no ventral hernia - Neurologic Neurologic: CNII-XII intact - Musculoskeletal Musculoskeletal: strength equal bilaterally - Psychiatric Psychiatric: A&O x's 3, appropriate affect, intact judgment & insight Results CBC & Chem 7: 09/02/19 05:58 09/01/19 16:44 Labs: Abnormal Lab Results - Last 24 Hours (Table) 09/01/19 09/02/19 09/02/19 Range/Units 19:31 01:59 05:58 WBC 13.9 H 15.0 H 15.9 H (3.8-10.6) k/uL RBC 3.30 L 3.20 L 3.17 L (3.80-5.40) m/uL Hgb 8.8 L 8.6 L 8.5 L (11.4-16.0) gm/dL Hct 28.1 L 27.5 L 27.2 L (34.0-46.0) % RDW 16.4 H 16.6 H 17.2 H (11.5-15.5) % Plt Count 616 H 600 H 613 H (150-450) k/uL Neutrophils # 12.3 H 13.3 H (1.3-7.7) k/uL Lymphocytes # 0.8 L 0.9 L (1.0-4.8) k/uL Chest x-ray: report reviewed Assessment and Plan (1) Hematemesis Narrative/Plan: Patient seen by GI, With fairly recent endoscopy. Patient is going to be treated symptomatically. Close monitoring of hemoglobin for now. We will continue to monitor iron. She received iron at the end of the month last month, iron studies can be rechecked to see if further supplementation as needed. Current Visit: Yes Status: Acute Priority: High Code(s): K92.0 - HEMATEMESIS SNOMED Code(s): 9046182 (2) Hemoptysis Narrative/Plan: Suspect that this could be related to the hematemesis? Patient will continue to monitor all expectoration. Current Visit: Yes Status: Acute Priority: Medium Code(s): R04.2 - HEMOPTYSIS SNOMED Code(s): 08041975 (3) Squamous cell lung cancer Narrative/Plan: Did review the chest x-ray results with the patient and questionable lymphangitic metastatic disease. Patient did have an MRI of the chest 3-4 weeks ago with no discussion of the same. SOB c/o and findings could be immunotherapy related pneumonitis. Will re-evaluate pt in AM-need to make sure her GI symptoms are better before starting steroids. Current Visit: Yes Status: Acute Code(s): C34.90 - MALIGNANT NEOPLASM OF UNSP PART OF UNSP BRONCHUS OR LUNG SNOMED Code(s): 307190947 (4) Iron deficiency anemia Narrative/Plan: Recheck iron studies Current Visit: Yes Status: Acute Priority: High Code(s): D50.9 - IRON DEFICIENCY ANEMIA, UNSPECIFIED SNOMED Code(s): 56015523
[2019-09-02] MEDS: ZOLPIDEM 10 MG TAB PO SCH (20:23)
[2019-09-03] MEDS: IPRATROPIUM-ALBUTEROL 3 ML NEB INHALATION SCH ×7 (00:37→23:39)
[2019-09-03 06:40] LABS: Anisocytosis Slight; Basophils % (A) 0 %; Eosinophils # (A) 0.1 k/uL (0-0.7); Eosinophils % (A) 1 %; HCT 27.2 % (34.0-46.0); HGB 8.2 gm/dL (11.4-16.0); Hypochromasia Moderate; Lymphocytes # (A) 0.9 k/uL (1.0-4.8); Lymphocytes % (A) 7 %; MCH 26.3 pg (25.0-35.0); MCHC 30.3 g/dL (31.0-37.0); MCV 86.9 fL (80.0-100.0); Monocytes # (A) 0.4 k/uL (0-1.0); Monocytes % (A) 3 %; Neutrophils # (A) 11.3 k/uL (1.3-7.7); Neutrophils % (A) 87 %; Platelet Count 612 k/uL (150-450); RBC 3.14 m/uL (3.80-5.40); RDW 16.6 % (11.5-15.5); WBC 12.9 k/uL (3.8-10.6)
[2019-09-03] MEDS: BUDESONIDE 1 MG/2 ML NEBU INHALATION SCH ×2 (08:08→19:59)
[2019-09-03] MEDS: HYDROcodone/APAP 10-325MG 1 EACH TAB PO PRN ×4 (08:17→23:01)
[2019-09-03] MEDS: ATORVASTATIN 10 MG TAB PO SCH (08:18)
[2019-09-03] MEDS: LEVOTHYROXINE 125 MCG TAB PO SCH (08:19)
[2019-09-03] MEDS: FLUoxetine HCL 20 MG CAP PO SCH (08:20)
[2019-09-03] MEDS: LIOTHYRONINE SODIUM 5 MCG TAB PO SCH (08:20)
[2019-09-03] MEDS: PANTOPRAZOLE 40 MG/10 ML VIAL IVP SCH ×2 (08:23→20:41)
[2019-09-03] MEDS: MEGESTROL 400 MG/10 ML CUP PO SCH ×2 (08:35→19:49)
[2019-09-03] MEDS: guaiFENesin-Coden 100-10MG/5ML 10 ML CUP PO PRN (11:50)
--- NOTE | 2019-09-03 17:56 | P.PN ---
Subjective Progress Note Date: 09/03/19 Principal diagnosis: hemoptysis In f/u today hemoptysis persists, clear sputum with it, stable SOB, no wheezing, pt is tolerating clear liquids and would like to advance her diet, no further vomiting Objective - Vital Signs Vital signs: Vital Signs Temp 98.2 F 09/03/19 16:00 Pulse 92 09/03/19 16:44 Resp 20 09/03/19 16:00 BP 106/54 09/03/19 16:00 Pulse Ox 96 09/03/19 16:00 Intake & Output 09/02/19 09/03/19 09/03/19 18:59 06:59 18:59 Intake Total 50 480 200 Balance 50 480 200 Weight 51.8 kg Intake: Oral 50 480 200 Other: # Voids 1 1 - Constitutional General appearance: Present: average body habitus, cooperative, no acute distress - EENT Eyes: Present: anicteric sclerae, EOMI ENT: Present: hearing grossly normal - Respiratory Respiratory: bilateral: CTA, diminished - Cardiovascular Heart sounds: normal: S1, S2 - Integumentary Integumentary: Present: normal - Neurologic Neurologic: Present: CNII-XII intact - Musculoskeletal Musculoskeletal: Present: strength equal bilaterally - Psychiatric Psychiatric: Present: A&O x's 3, appropriate affect, intact judgment & insight - Labs CBC & Chem 7: 09/03/19 06:01 09/01/19 16:44 Labs: Abnormal Lab Results - Last 24 Hours (Table) 09/03/19 Range/Units 06:01 WBC 12.9 H (3.8-10.6) k/uL RBC 3.14 L (3.80-5.40) m/uL Hgb 8.2 L (11.4-16.0) gm/dL Hct 27.2 L (34.0-46.0) % MCHC 30.3 L (31.0-37.0) g/dL RDW 16.6 H (11.5-15.5) % Plt Count 612 H (150-450) k/uL Neutrophils # 11.3 H (1.3-7.7) k/uL Lymphocytes # 0.9 L (1.0-4.8) k/uL Assessment and Plan (1) Hemoptysis Narrative/Plan: Not r/t hematemesis, pt is coughing up blood. R/t infection or malignancy? Dr. Smallwood going to treat for Current Visit: Yes Status: Acute Priority: High Code(s): R04.2 - HEMOPTYSIS SNOMED Code(s): 27233548 (2) Hematemesis Current Visit: Yes Status: Resolved Priority: High Code(s): K92.0 - HEMATEMESIS SNOMED Code(s): 4805735 (3) Squamous cell lung cancer Narrative/Plan: Going to re-evaluate resp status and hemoptysis after abx, steroids and lasix Rx from IM. If not improved-immunotherapy induced pneumonitis vs lymphangetic spread. Recs to follow Current Visit: Yes Status: Acute Code(s): C34.90 - MALIGNANT NEOPLASM OF UNSP PART OF UNSP BRONCHUS OR LUNG SNOMED Code(s): 465553023 (4) Iron deficiency anemia Narrative/Plan: Recheck iron studies, forgot to order yesterday Current Visit: Yes Status: Acute Priority: High Code(s): D50.9 - IRON DEFICIENCY ANEMIA, UNSPECIFIED SNOMED Code(s): 32235511
--- NOTE | 2019-09-03 18:07 | PN ---
PROGRESS NOTE DATE OF DICTATION: 09/03/2019 Patient is a 73-year-old pleasant white female admitted to the hospital with acute upper GI bleed. She had one episode of hematemesis followed by a cough with some bloody sputum. She denies any abdominal pain. No further episodes of nausea, vomiting. She is doing well. PHYSICAL EXAMINATION: Appears comfortable. No apparent distress. VITAL SIGNS: Stable. Blood pressure is 119/66, pulse rate 108, temperature 98. HEENT examination unremarkable. Conjunctivae pink. Sclerae anicteric. Oral cavity no lesions. NECK: No JVD or lymph node enlargement. CHEST: Clear to auscultation. HEART: Regular rate and rhythm. ABDOMEN: Soft. There was minimal tenderness in the epigastric area. Bowel sounds are positive. No organomegaly. EXTREMITIES: No pedal edema. SKIN: No rashes. NEUROLOGIC: Alert and oriented x3. No focal deficits. LABS: WBC 12.9, hemoglobin 8.2, platelets 612. Yesterday hemoglobin was 8.5. IMPRESSION: 1. Hematemesis, one episode, resolved. No further episodes of nausea, vomiting. Currently on Protonix 40 mg daily, doing well. She had an upper endoscopy done by Dr. Tatum on July 20, 2019, that showed mild gastritis and a small hiatal hernia. 2. Squamous cell lung cancer; Oncology following the patient closely. 3. Hemoptysis. 4. Mild anemia. RECOMMENDATIONS: 1. Advance to a regular diet. 2. Continue Protonix 40 mg daily. 3. No plans for any endoscopic intervention at the present time. 4. Will follow the patient closely during her hospital stay. Thank you for this consultation. MMODL / IJN: [id number] /
[2019-09-03] MEDS ORDERED: FUROSEMIDE 10 MG/ML 4 ML VIAL IV STA (20:19)
--- NOTE | 2019-09-03 22:28 | P.PN ---
Progress Note - Text Progress Note Date: 09/03/19 Chief Complaint: Vomited blood interval history: This is a very pleasant 73-year-old patient of Dr. flores. Chronic stable medical conditions include COPD, GERD, hyperlipidemia, hypertension, osteoarthritis, hypothyroid. Patient has a diagnosis of lung cancer and affect chemoirradiation for admission December 2018. Currently receiving opdivo at [facility]. Patient's oncologist is Dr. Shine. Patient presented after she vomited about a cupful of blood. Rather significant amount. About 3 weeks ago she did have what EGD by Dr. Fatima. That showed some gastritis. Biopsy results unremarkable. Patient's appetite is somewhat okay. Has been losing blood. Is on home oxygen 2 L. Does get short of breath and tired. Lives with her daughter. today-has been coughing up small amounts of blood. Some sputum that is primarily clear. Some shortness of breath is present. Tired. Review of systems: Was done for constitutional, cardiovascular, GI, pulmonary. relevant finding as above Active Medications Hydrocodone Bitart/Acetaminophen ([place] 10) 1 each PO Q4H PRN PRN Reason: Moderate Pain Last Admin: 09/03/19 19:36 Dose: 1 each Documented by: Albuterol/Ipratropium (Duoneb 0.5 Mg-3 Mg/3 Ml Soln) 3 ml INHALATION RT-Q4H [facility] Last Admin: 09/03/19 19:59 Dose: 3 ml Documented by: Atorvastatin Calcium (Lipitor) 10 mg PO DAILY@0930 [facility] Last Admin: 09/03/19 08:18 Dose: 10 mg Documented by: Budesonide (Pulmicort) 1 mg INHALATION RT-BID [facility] Last Admin: 09/03/19 19:59 Dose: 1 mg Documented by: Fluoxetine HCl (Prozac) 20 mg PO DAILY@0930 [facility] Last Admin: 09/03/19 08:20 Dose: 20 mg Documented by: Guaifenesin/Codeine Phosphate (Robitussin Ac) 10 ml PO Q6H PRN PRN Reason: coughing Last Admin: 09/03/19 11:50 Dose: 10 ml Documented by: Levothyroxine Sodium (Synthroid) 125 mcg PO DAILY@0930 [facility] Last Admin: 09/03/19 08:19 Dose: 125 mcg Documented by: Liothyronine Sodium (Cytomel) 25 mcg PO DAILY@0930 [facility] Last Admin: 09/03/19 08:20 Dose: 25 mcg Documented by: Megestrol Acetate (Megace) 800 mg PO BID@1000,1700 [facility] Last Admin: 09/03/19 19:49 Dose: Not Given Documented by: Pantoprazole Sodium (Protonix) 40 mg IVP BID [facility] Last Admin: 09/03/19 20:41 Dose: 40 mg Documented by: Zolpidem Tartrate (Ambien) 10 mg PO HS@2100 [facility] Last Admin: 09/02/19 20:23 Dose: 10 mg Documented by: Physical examination: VITAL SIGNS: 98, 108, 20, 11 9/66, 94% on 2 L GENERAL: propped up in bed, but tired. EYES: Pupils equal. Conjunctiva pale HEENT: External appearance of nose and ears normal, oral cavity grossly normal. NECK: JVD not raised; masses not palpable. HEART: First and second heart sounds are normal; no edema. LUNGS: Respiratory rate increased, diminished breath sounds. ABDOMEN: Soft, nontender, liver spleen not palpable, no masses palpable. PSYCH: Alert and oriented x3; mood and affect slightly anxiousl. INVESTIGATIONS, reviewed in the clinical context: White count 12.98.2 platelets 612 Previous testing White count 3.4 hemoglobin 9.5 repeat this morning 8.5 platelet 695 progression 4.8 creatinine 0.45 Albumin 2.8 EKG tracing personally reviewed by me shows normal sinus rhythm some flipped T waves in anterior leads Chest x-ray film personally reviewed by me-shows increased interstitial and possible mass and infiltrate Assessment: -Acute hematemesis in a patient with occasionally 3 weeks ago that showed some gastritis and a biopsy results unremarkable -Hemoptysis small amounts likely from underlying malignancy. Cannot rule out infection. -Questionable fluid overload -Normocytic anemia likely from underlying malignancy -Lung cancer status post chemoradiation treatment currently in on opdivo -COPD in an ex-smoker -GERD -Essential hypertension Hyperlipidemia -Primary osteoarthritis -Hypothyroid -CODE STATUS: DO NOT RESUSCITATE Plan: we will give couple of dose of Lasix 40 mg see how patient responds.also start the patient on cefepime and see how she does. Care was discussed with the patient. Questions were answered. Prognosis guarded.
[2019-09-03] MEDS: ZOLPIDEM 10 MG TAB PO SCH (23:01)
[2019-09-03] MEDS: CEFEPIME 2 GM in SODIUM CHLORIDE 0.9% 100 ML IVPB SCH (23:01)
[2019-09-04] MEDS: HYDROcodone/APAP 10-325MG 1 EACH TAB PO PRN ×3 (02:59→12:09)
[2019-09-04] MEDS: IPRATROPIUM-ALBUTEROL 3 ML NEB INHALATION SCH ×4 (04:28→16:03)
[2019-09-04 06:04] LABS: Anisocytosis Slight; Basophils % (A) 0 %; Eosinophils # (A) 0.1 k/uL (0-0.7); Eosinophils % (A) 2 %; HCT 26.1 % (34.0-46.0); HGB 8.2 gm/dL (11.4-16.0); Lymphocytes # (A) 0.6 k/uL (1.0-4.8); Lymphocytes % (A) 6 %; MCH 26.7 pg (25.0-35.0); MCHC 31.5 g/dL (31.0-37.0); MCV 84.6 fL (80.0-100.0); Mean Platelet Volume 7.2; Monocytes # (A) 0.3 k/uL (0-1.0); Monocytes % (A) 3 %; Neutrophils # (A) 7.8 k/uL (1.3-7.7); Neutrophils % (A) 87 %; Platelet Count 533 k/uL (150-450); RBC 3.08 m/uL (3.80-5.40); RDW 17.3 % (11.5-15.5); WBC 8.9 k/uL (3.8-10.6)
[2019-09-04] MEDS: BUDESONIDE 1 MG/2 ML NEBU INHALATION SCH (07:11)
--- NOTE | 2019-09-04 07:44 | XR ---
EXAMINATION TYPE: XR chest 2V DATE OF EXAM: 09/04/2019 COMPARISON: Prior chest x-ray 09/01/[address] 06/12/2019 HISTORY: Follow-up abnormal chest x-ray TECHNIQUE: Frontal and lateral views of the chest are obtained. FINDINGS: Findings are similar. Interstitium is increased. Patient is rotated. Aorta is dense and po ssibly ectatic. Heart size is unchanged. Irregular pleural thickening noted in the left hemithorax, l eft hemidiaphragm is obscured. There are overlying cardiac leads. IMPRESSION: Interstitial lung disease, abnormal pleural thickening may be related to patient's lung carcinoma, posttreatment change, difficult to exclude pneumonia. There is underlying emphysema.
[2019-09-04] MEDS: FLUoxetine HCL 20 MG CAP PO SCH (08:31)
[2019-09-04] MEDS: LIOTHYRONINE SODIUM 5 MCG TAB PO SCH (08:32)
[2019-09-04] MEDS: LEVOTHYROXINE 125 MCG TAB PO SCH (08:33)
[2019-09-04] MEDS: ATORVASTATIN 10 MG TAB PO SCH (08:33)
[2019-09-04] MEDS: PANTOPRAZOLE 40 MG/10 ML VIAL IVP SCH (08:35)
[2019-09-04] MEDS: CEFEPIME 2 GM in SODIUM CHLORIDE 0.9% 100 ML IVPB SCH (08:36)
[2019-09-04] MEDS ORDERED: FUROSEMIDE 10 MG/ML 4 ML VIAL IV SCH (09:00)
[2019-09-04] MEDS: MEGESTROL 400 MG/10 ML CUP PO SCH (09:11)
[2019-09-04 10:55] VITALS: BMI 18.3
[2019-09-04] MEDS: guaiFENesin-Coden 100-10MG/5ML 10 ML CUP PO PRN (11:04)
[2019-09-04 12:02] VITALS: BP 111/69; PULSE 70; RESP 18; TEMP 98.1
[2019-09-04 12:49] LABS: % Iron Saturation 13.04 (12.00-45.00)
[2019-09-04 13:50] LABS: Ferritin 4873.1 ng/mL (10.0-291.0)
[2019-09-04] MEDS ORDERED: RX INFO: IV CONTRAST WAS GIVEN 1 EACH MISC MISCELLANE PRN (14:53)
--- NOTE | 2019-09-04 15:02 | P.PN ---
Subjective Progress Note Date: 09/04/19 Principal diagnosis: hemoptysis In f/u today hemoptysis persists, no notable changes in SOB. Tolerating diet, ambulating independently, mild nausea no vomiting, feels she needs to have a BM. Objective - Vital Signs Vital signs: Vital Signs Temp 98.1 F 09/04/19 11:57 Pulse 70 09/04/19 11:57 Resp 18 09/04/19 12:00 BP 111/69 09/04/19 11:57 Pulse Ox 95 09/04/19 11:57 Intake & Output 09/03/19 09/04/19 09/04/19 18:59 06:59 18:59 Intake Total 440 600 Balance 440 600 Weight 49.1 kg 49.1 kg Intake: Oral 440 600 Other: # Voids 1 240 - Constitutional General appearance: Present: cooperative, no acute distress, thin - EENT Eyes: Present: anicteric sclerae, EOMI ENT: Present: hearing grossly normal - Respiratory Respiratory: bilateral: diminished - Cardiovascular Rhythm: regular Heart sounds: normal: S1, S2 - Peripheral edema leg Peripheral Edema: bilateral: None - Gastrointestinal General gastrointestinal: Present: normal bowel sounds, soft - Neurologic Neurologic: Present: CNII-XII intact - Musculoskeletal Musculoskeletal: Present: generalized weakness, strength equal bilaterally - Psychiatric Psychiatric: Present: A&O x's 3, appropriate affect, intact judgment & insight - Labs CBC & Chem 7: 09/04/19 05:49 09/01/19 16:44 Labs: Abnormal Lab Results - Last 24 Hours (Table) 09/04/19 09/04/19 Range/Units 05:49 05:49 RBC 3.08 L (3.80-5.40) m/uL Hgb 8.2 L (11.4-16.0) gm/dL Hct 26.1 L (34.0-46.0) % RDW 17.3 H (11.5-15.5) % Plt Count 533 H (150-450) k/uL Neutrophils # 7.8 H (1.3-7.7) k/uL Lymphocytes # 0.6 L (1.0-4.8) k/uL Iron 18 L (50-170) ug/dL TIBC 138 L (228-460) ug/dL Ferritin 4873.1 H (10.0-291.0) ng/mL Assessment and Plan (1) Hemoptysis Narrative/Plan: Stable. CT requested Current Visit: Yes Status: Acute Priority: High Code(s): R04.2 - HEMOPTYSIS SNOMED Code(s): 20842027 (2) Hematemesis Current Visit: Yes Status: Resolved Priority: High Code(s): K92.0 - HEMATEMESIS SNOMED Code(s): 9509717 (3) Squamous cell lung cancer Narrative/Plan: Re-evaluation of resp status today, no significant change. Pt is stable. CT ordered. Steroid taper sent to [facility] F/U appt with Dr. Shine in chart Current Visit: Yes Status: Acute Code(s): C34.90 - MALIGNANT NEOPLASM OF UNSP PART OF UNSP BRONCHUS OR LUNG SNOMED Code(s): 121983603 (4) Iron deficiency anemia Current Visit: Yes Status: Acute Priority: High Code(s): D50.9 - IRON DEFICIENCY ANEMIA, UNSPECIFIED SNOMED Code(s): 59397461
--- NOTE | 2019-09-04 16:35 | CT ---
EXAMINATION TYPE: CT chest w con DATE OF EXAM: 09/04/2019 COMPARISON: Prior chest CT 05/18/2019, chest x-ray 09/02/2019 HISTORY: Shortness of breath and cough. History of lung cancer. CT DLP: 190.2 mGycm Automated exposure control for dose reduction was used. CONTRAST: CT scan of the chest is performed with IV Contrast, patient injected with 100 mL of Isovue 300. FINDINGS: LUNGS: The left lung shows an interval development of air bronchograms, increased parenchymal density at the left lung base with associated focus of air collection, possible small air-fluid level on axi al image #28. Possible communication with the lower lobe bronchus on the left with this air-fluid lev el, axial images #26, 27 No sizable effusion. There is a bandlike area of increased attenuation which was seen on prior exam which may be related to suture material. Extensive emphysematous changes are present within the lungs. There is some groundglass opacity present within the right upper lobe which is extending peripherally towards the pleura on image 23 is not seen on prior exam. Right middle lob e shows some minimal consolidation change medially. MEDIASTINUM: Aorticopulmonary window node level shows abnormal soft tissue was not seen on prior exam , possible chad enlargement measures 2.4 x 2.3 x 1.2 cm. There is volume loss in the left thorax. Ab normal soft tissue noted about the left mainstem bronchus, the caliber left mainstem bronchus is redu luis antonio as compared to the right. There are coronary artery calcifications present. AORTA: No additional significant abnormality is seen. OTHER: Osseous structures show multilevel spondylosis in the thoracic spine. IMPRESSION: Findings may be indicative of necrotic tumor, superinfection not excluded. Extensive emp hysema, difficult to exclude pneumonia.
--- NOTE | 2019-09-07 15:17 | P.DS ---
Providers Date of admission: 09/01/19 19:21 Expected date of discharge: 09/04/19 Attending physician: Mervin Smallwood Consults: 09/01/19 19:16 Consult Physician Urgent Consulting Provider: Charo Garcia Consult Reason/Comments: Upper GI bleed Do you want consulting provider notified?: Yes 09/01/19 19:33 Consult Physician Urgent Consulting Provider: Mildred Grimm Consult Reason/Comments: Lung cancer Do you want consulting provider notified?: Yes Primary care physician: Long Cespedes [facility] Course: Chief Complaint: Vomited blood interval history: This is a very pleasant 73-year-old patient of Dr. cespedes. Chronic stable medical conditions include COPD, GERD, hyperlipidemia, hypertension, osteoarthritis, hypothyroid. Patient has a diagnosis of lung cancer and received chemoirradiation and December 2018. Currently receiving opdivo at [facility]. Patient's oncologist is Dr. Shine. Patient presented after she vomited about a cupful of blood. About 3 weeks ago she did have what EGD by Dr. Fatima. That showed some gastritis. Biopsy results unremarkable. Patient's appetite is somewhat okay. Has been losing blood. Is on home oxygen 2 L. Does get short of breath and tired. Lives with her daughter. Patient did have a computed tomography scan of the chest. Patient still having some hemoptysis but oftentimes old blood. It is felt patient's symptoms are from the tumor load. Fluid overload and pneumonia less likely. Seen by Dr. Shine team and okay to be discharged. Care was discussed with the patient. Not for any further intervention per GI. Consultation: Dr. Garcia from oncology Dr. Lita Garcia from GI Physical examination: VITAL SIGNS: 98.1, 70, 18, 101/69, 95% on 2 L GENERAL: Sitting up, tired. EYES: Pupils equal. Conjunctiva pale HEENT: External appearance of nose and ears normal, oral cavity grossly normal. NECK: JVD not raised; masses not palpable. HEART: First and second heart sounds are normal; no edema. LUNGS: Respiratory rate increased, diminished breath sounds. ABDOMEN: Soft, nontender, liver spleen not palpable, no masses palpable. PSYCH: Alert and oriented x3; mood and affect slightly anxiousl. INVESTIGATIONS, reviewed in the clinical context: White count 8.9 hemoglobin 8.2 iron 18 ferritin 4873 Previous testing White count 3.4 hemoglobin 9.5 repeat this morning 8.5 platelet 695 progression 4.8 creatinine 0.45 Albumin 2.8 EKG tracing personally reviewed by me shows normal sinus rhythm some flipped T waves in anterior leads Chest x-ray film personally reviewed by me-shows increased interstitial and possible mass and infiltrate Assessment: -Acute hematemesis in a patient with occasionally 3 weeks ago that showed some gastritis and a biopsy results unremarkable. -Intermittent Hemoptysis small amounts likely from underlying malignancy. -Normocytic anemia likely from underlying malignancy -Lung cancer status post chemoradiation treatment currently on opdivo -COPD in an ex-smoker -GERD -Essential hypertension -Hyperlipidemia -Primary osteoarthritis -Hypothyroid -Reactive thrombocytosis -CODE STATUS: DO NOT RESUSCITATE Disposition: Home Patient Condition at Discharge: Undetermined Plan - Discharge Summary New Discharge Prescriptions: New predniSONE 60 mg PO DIRECTED #54 tab Continue Hydrocodone/Acetaminophen [[place] 10-325] 1 tab PO QID@,,, FLUoxetine HCL [PROzac] 20 mg PO DAILY@929 Levothyroxine Sodium [Synthroid] 125 mcg PO DAILY@929 Atorvastatin [Lipitor] 10 mg PO DAILY@929 Omeprazole 40 mg PO BID@0930,2099 Opdivo(Dose Unknown) 1 dose IV QMONTH Budesonide(Unknown Dose) 1 vial INHALATION RT-DAILY@1400 Zolpidem Tartrate [Ambien] 10 mg PO HS@2100 Albuterol Nebulized [Ventolin Nebulized] 2.5 mg INHALATION RT-BID@1000,2200 Albuterol Sulfate [Proair Hfa] 2 puff INHALATION RT-QID Polyethylene Glycol 3350 [Miralax] 17 gm PO DAILY@1000 Megestrol Acetate [Megace] 800 mg PO BID@1000,1700 guaiFENesin-Coden 100-10MG/5ML [Robitussin AC] 10 ml PO QID@,,18, Liothyronine Sodium [Cytomel] 25 mcg PO DAILY@0930 Discontinued amLODIPine [Norvasc] 10 mg PO DAILY@0930 Discharge Medication List Atorvastatin [Lipitor] 10 mg PO DAILY@30 05/27/17 [History] FLUoxetine HCL [PROzac] 20 mg PO DAILY@92905/27/17 [History] Hydrocodone/Acetaminophen [[place] 10-325] 1 tab PO QID@09,13,17,21 05/27/17 [History] Levothyroxine Sodium [Synthroid] 125 mcg PO DAILY@0930 05/27/17 [History] Omeprazole 40 mg PO BID@0930,2100 07/17/19 [History] Opdivo(Dose Unknown) 1 dose IV QMONTH 07/17/19 [History] Albuterol Nebulized [Ventolin Nebulized] 2.5 mg INHALATION RT-BID@1000,2200 09/01/19 [History] Albuterol Sulfate [Proair Hfa] 2 puff INHALATION RT-QID 09/01/19 [History] Budesonide(Unknown Dose) 1 vial INHALATION RT-DAILY@1400 09/01/19 [History] Liothyronine Sodium [Cytomel] 25 mcg PO DAILY@0930 09/01/19 [History] Megestrol Acetate [Megace] 800 mg PO BID@1000,1700 09/01/19 [History] Polyethylene Glycol 3350 [Miralax] 17 gm PO DAILY@1000 09/01/19 [History] Zolpidem Tartrate [Ambien] 10 mg PO HS@2100 09/01/19 [History] guaiFENesin-Coden 100-10MG/5ML [Robitussin AC] 10 ml PO QID@,,18,22 09/01/19 [History] predniSONE 60 mg PO DIRECTED #54 tab 09/04/19 [Rx] Follow up Appointment(s)/Referral(s): Long Cespedes MD [Primary Care Provider] - 09/09/19 3:15 pm Giancarlo Shine MD [STAFF PHYSICIAN] - 09/08/19 8:45 am Julio Cesar Tatum MD [STAFF PHYSICIAN] - As Needed () Patient Instructions/Handouts: Diet for Stomach Ulcers and Gastritis (ED), Anemia (DC) Activity/Diet/Wound Care/Special Instructions: GI BLEED 1. Take all new medication as directed. 2. Avoid foods that can be irritating to your intestines (See dietary teaching). 3. Avoid motrin (ibuprofen) and aleve (naproxen). These medications can increase your risk of internal bleeding. Tylenol (acetaminophen) is safe to take as long as you do not have any liver disease. 4. Avoid drinking alcohol and smoking, these can also irritate your intestines and increase risk of internal bleeding. 5. Increase activity gradually, do not overexert yourself. Your blood count is lower and your body will need time to recover. get dc orders from oncology Discharge Disposition: HOME SELF-CARE
== END 2019-09-04 16:40 | disposition home health service (06) | DRG 378 ==
LOC: EC 16:22 → 3SCARD 19:21
PROVIDERS: ADMIT Hospitalist; ATTEND Hospitalist
DX: K29.71 Gastritis, unspecified, with bleeding (principal); C34.90 Malignant neoplasm of unspecified part of unspecified bronchus or lung; J44.9 Chronic obstructive pulmonary disease, unspecified; M19.91 Primary osteoarthritis, unspecified site; F41.9 Anxiety disorder, unspecified; D50.9 Iron deficiency anemia, unspecified; E03.9 Hypothyroidism, unspecified; E78.5 Hyperlipidemia, unspecified; F32.9 Major depressive disorder, single episode, unspecified; I10 Essential (primary) hypertension; K21.9 Gastro-esophageal reflux disease without esophagitis; K44.9 Diaphragmatic hernia without obstruction or gangrene; Z17.0 Estrogen receptor positive status [ER+]; Z66 Do not resuscitate; Z79.51 Long term (current) use of inhaled steroids; Z79.890 Hormone replacement therapy; Z79.899 Other long term (current) drug therapy; Z88.0 Allergy status to penicillin; Z88.8 Allergy status to other drugs, medicaments and biological substances; Z87.891 Personal history of nicotine dependence; Z90.710 Acquired absence of both cervix and uterus; Z92.21 Personal history of antineoplastic chemotherapy; Z92.3 Personal history of irradiation; Z86.73 Personal history of transient ischemic attack (TIA), and cerebral infarction without residual deficits; Z90.49 Acquired absence of other specified parts of digestive tract; Z99.81 Dependence on supplemental oxygen; Z80.9 Family history of malignant neoplasm, unspecified
CPT/HCPCS: 36415; 71046; 71260; 80053; 82728; 83540; 83550; 83735; 85025; 85027; 85610; 85730; 86850; 86900; 86901; 93005; 94640; 94760; 96361; 96374; 96375; 99285